=== PATIENT | female | born 1995 | race Caucasian/White ===

== ENCOUNTER 2017-06-07 14:13 | Emergency (ER) | payer MEDICAID ==
[~2017-06-07] VITALS: Ht 157.5 cm; Wt 76.8 kg
[~2017-06-07 14:13] MED LIST: AMOXICILLIN500 M2 PO; AMOXIL500 MG PO; BENADRYL 25MG C25 MG PO; BIRTH CONTROL; ETODOLAC400 MG PO; FLEXERIL10 MG PO; IMPLANON68 MG; KEFLEX 500MG.500 MG PO; MEDROL 4MG. DOSE4 MG PO; MOTRIN400 MG PO; NOMEDS; ROMYCIN5 MG/GM OP; VEE K PO; ZITHROMAX Z PA250 MG PO; ZOFRAN ODT4 MG PO; ZYRTEC ALLERGY10 MG PO
--- OUTSIDE RECORDS SUMMARY | 2017-06-07 14:22 | External Medical Summary Rpt | CCD ---
Author Author , [facility] Organization [facility] Address Unknown Phone Care Team Providers Care Career Information Specialist Name Role Phone BURCH BRO, BURCH Unavailable Unavailable BRO BURCH BRO, BURCH Unavailable Unavailable BRO ELSA HUNTER Unavailable Unavailable ELSA SPENCER, HUNTER Unavailable Unavailable SPENCER ELSA PALMER, HUNTER Unavailable Unavailable JIMI LANE, Unavailable Unavailable [facility], [facility]available [facility] Unavailable [place], [facility] Unavailable Unavailable [place], [facility] [place] JUDSON DUNCAN, Unavailable Unavailable JUDSON DUNCAN JUDSON DUNCAN, Unavailable Unavailable JUDSON DUNCAN RIANNA ROPER, Unavailable Unavailable SHALOM ROPERLAS JUNE SCHMITT MD, Unavailable Unavailable JUNE SCHMITT MD [facility], [facility] CORINA FERRARI, Unavailable Unavailable CORINA FERRARI GAINEY Unavailable Unavailable STEVEN WEN SAVAGE, Unavailable Unavailable WEN SAVAGE [facility] Unavailable Un[facility], [facility] Unavailable Unavailable [facility], [facility] Unavailable Unavailable INC, [facility] SUAREZ STERLING, SUAREZ STERLING Unavailable Unavailable SUAREZ STERLING, SUAREZ STERLING Unavailable Unavailable [facility], Unavailable Unavailable [facility] STOCK[place], [facility] Unavailable Unavailable [facility] Unavailable Unavailable SERVICES, [facility] MULBERRY URSZULA, Unavailable Unavailable MULBERRY URSZULA MALINDA SMITH T, Unavailable Unavailable MALINDA SMITH R HENRY, Unavailable Unavailable Gia SANTOS'AGUILARROBERTO CARLOS ESTRADA, O'AGUILAR Unavailable Unavailable [facility], Unavailable [facility]available [facility] Unavailable Unavailable [facility] Unavailable Unavailable LAB, [facility] RENUSCH, RENUSCH Unavailable Unavailable [id number], Unavailable Unavailable [id number] LULA POLANCO, SHERRI, Unavailable Unavailable LULA Jolly SOKAN, KARYN O, Unavailable Unavailable SOKAN, KARYN O STRAWZELL CRI, Unavailable Unavailable STRAWZELL CRI STRAWZELL CRI, Unavailable Unavailable STRAWZELL CRI UMA HORTON, Unavailable Unavailable UMA HORTON [facility] Unavailable Unavailable #[facility], [facility] # Unavailable Unavailable [id number], [facility] # [id number] [facility] HERRERA Unavailable Unavailable [facility] Unavailable Unavailable [facility], [facility] Purpose Continuity of Care Document - 11-28-2007 through 2016 Problems Code Diagnosis DOS Provider Status Z3040 ENCOUNTER 02-04-2017 [facility] FOR [facility]IANS SURVEILLANC GROUP E CONTRACEPTI VES UNS Z3009 ENCOUNTER 11-18-2016 [facility] OT GENERAL PHYSICIANS GROUP GEOTECHNICAL INTERN&ADV ICE CONTRACEPT J069 ACUTE UPPER 10-20-2016 [facility], RESPIRATORY PLLC INFECTION UNSPECIFIED R112 NAUSEA WITH 10-20-2016 [facility] VOMITING PHYS[facility]IANS, UNSPECIFIED PLLC N926 IRREGULAR 10-18-2016 [facility] UNSPECIFIED R1033 PERIUMBILIC 08-07-2016 [facility] AL PAIN PHYSICIANS, PLLC Z3046 ENCOUNTER 07-09-2016 [facility] SURVEILLANC PHYSICIANS E IMPL GROUP SUBDERMAL CONTRACEPT 6264 IRREGULAR 12-25-2014 [facility] MENSTRUAL PHYSICIANS CYCLE GROUP 18194 OTHER SIGN 11-23-2014 [place] [facility] 6116 GALACTORRHE 11-20-2014 [facility] A NOT PHYSICIANS ASSOCIATED GROUP WITH CHILDBIRTH 36412 OTHER 11-20-2014 [facility] ABNORMAL PHYSICIANS FINDING GROUP RADIOLOGICA L EXAM BREAST 15961 UNSPECIFIED 11-22-2013 ERICK K[place] [address] UNSPECIFIED 11-19-2013 [facility] CONJUNCTIVI INC TIS 72348 UNSPECIFIED 11-19-2013 MARCIN BRO CONJUNCTIVI TIS 48744 ORBITAL 11-19-2013 MARCIN SAHA CELLULITIS 87486 PAIN IN OR 11-19-2013 JUDSON AROUND EYE DUNCAN 6820 CELLULITIS 11-19-2013 [facility] AND ABSCESS [facility] OF FACE INC 7823 EDEMA 11-19-2013 JUDSON DUNCAN V2543 SURVEILLANC 07-26-2013 ELSA PALMER E PREV PRSC IMPL SUBDERMAL CONTRACEPT V692 PROBLEMS 07-26-2013 COM[facility] RELATED TO PHYSICIANS HIGH-RISK LA SEXUAL BEHAVIOR V255 INSERTION 07-06-2013 ELSA PALMER OF IMPLANTABLE SUBDERMAL CONTRACEPTI VE 350.2 350.2 11-29-2012 [facility] ATYPICAL [facility] PAIN [facility] 3502 ATYPICAL 11-29-2012 [facility] 9104 FCE 09-19-2012 [facility] NCK&SCLP NO EMERGENCY EYE INSECT SERVICES BITE NONVNOM W/O INF 7241 PAIN IN 09-19-2011 [facility] THORACIC [facility]Y SPINE SERVICES 7245 UNSPECIFIED 09-19-2011 JUDSON BACKACHE DUNCAN 5990 URINARY 08-04-2011 STR[facility]LL TRACT CRI INFECTION SITE NOT SPECIFIED 9194 OTH MX&UNS 05-10-2011 [facility] SITE INSECT EMERGENCY BITE SERVICES NONVENOMOUS W/O INF 462 ACUTE 01-16-2011 [facility] PHARYNGITIS [facility] 9134 ELB 12-15-2010 [facility] INSECT BITE NONVENOMOUS W/O INF 9164 HIP THI 12-15-2010 [facility] LEG&ANK [facility] INSECT BITE NONVENOMOUS W/O INF V7231 ROUTINE 07-03-2010 [facility] OF EXAMINATION [facility]ANCES V745 SCREENING 07-03-2010 PATHOLOGY & EXAMINATION CYTOLOGY FOR LAB VENEREAL DISEASE 1320 PEDICULUS 04-30-2010 [facility] CAPITIS [facility] 220 BENIGN 10-04-2009 [facility] NEOPLASM OF HEALTH OVARY [facility] 6202 OTHER AND 10-04-2009 PATHOLOGY & UNSPECIFIED CYTOLOGY OVARIAN LAB CYST 6259 UNSPEC 07-26-2009 [facility] CLINIC OF W/FEM[facility] [place] [facility] ORGANS 08160 ABDOMINAL 07-26-2009 [facility] PAIN, LEFT HEALTH LOWER CLINIC OF [facility] 35874 ABDOMINAL 07-16-2009 ANGELICA PAIN, EMERGENCY UNSPECIFIED SERVICES SITE ASSOC[facility]ATES 87640 ABDOMINAL 07-16-2009 [facility] PAIN, [facility] GENERALIZED INC 8730 OPEN WOUND 11-02-2008 [facility] SCALP EMERGENCY WITHOUT SERVICES MENTION ASSOCIATES COMPLICATIO N 9190 ABRASION/FR 11-02-2008 [facility] ICION BURN EMERGENCY OTH MX&UNS SERVICES SITE W/O ASSOCIATES INF 920 CONTUSION 11-02-2008 [facility] OF FACE [facility]ERGENCY SCALP AND SERVICES NECK EXCEPT ASSOCIATES EYE E8490 PLACE OF 11-02-2008 [place] OCCURRENCE, [facility]ICAL HOME [facility] E8859 FALL FROM 11-02-2008 [place] OTHER MEDICAL SLIPPING IMAGING TRIPPING OR ASSOCIATES STUMBLING E8888 OTHER FALL 11-02-2008 [facility] V202 ROUTINE 03-19-2008 [facility] OR [facility] CHILD HEALTH CHECK 7806 FEVER & OTH 02-04-2008 [facility] PROF SERV DISTURBANCE S [place] REG 13316 UNSPECIFIED 01-24-2008 [place] SITE OF MEDICAL ANKLE IMAGING SPRAIN AND ASSOCIATES STRAIN E9179 OTHER 01-24-2008 [place] STRIKING MEDICAL AGAINST IMAGING W/WO ASSOCIATES SUBSEQUENT FALL Allergies, Adverse Reactions, Alerts Type Allergy to substance Adverse Reaction to Substance Substance Reaction Severity NO KNOWN ALLERGIES Unknown Unknown Medications Na ND Rx Da Fi Fi Am Da Di Ph RX Ph St me C No te ll ll ou ys ag ar # ys at rm s nt no ma ic us Or Da si cy ia de te s n re d ME 59 06 07 1. [address] 76 -1 -1 00 00 IN ti OX 24 5- 4- 0 00 IC ve YP 53 20 20 42 RO 80 17 17 66 PH GE [address] MA ER CY ON E 15 0 MG /M L ME 59 03 04 1. [address] 76 -2 -2 00 00 IN ti OX 24 9- 1- 0 00 IC ve YP 53 20 20 42 RO 80 17 17 66 PH GE [address] MA ER CY ON E 15 0 MG /M L ME 00 04 04 0 21 6 WA 71 WALDRON Ac TH 60 -2 -2 .0 L- 16 MM ti YL 34 5- 5- 00 MA 52 ON ve MT 59 20 20 RT 3 D ED 31 11 11 KA NI 5 PH TH SO AR AR LO MA IN NE CY E 4 # Y MG 10 05 DO 91 SE PK PE 00 11 11 1 60 7 CL 22 CL Ac RM 47 -1 -1 .0 IN 66 AR ti ET 20 1- 1- 00 IC 03 KE ve HR 24 20 20 IN 26 10 10 PH DE 0 AR RE 5% MA K CY J CR EA LL M C MA 51 07 07 0 11 1 WA 70 NO Ac LA 67 -0 -0 8. L- 77 RF ti TH 25 8- 8- 00 MA 78 LE ve IO 27 20 20 0 RT 3 ET N 70 10 10 R 0. 4 PH 5% AR HE MA NR LO CY Y TI # ON 10 05 91 IB 68 02 02 00 30 5 WA 70 CL Ac UP 64 -1 -2 .0 L- 58 AR ti RO 50 2- 6- 00 MA 30 KE ve FE 22 20 20 RT 4 N 09 10 10 DE 40 0 PH RE 0 AR K MG MA J CY TA BL #5 ET 91 00 02 02 00 30 3 WA 44 CL Ac 40 -1 -2 .0 L- 83 AR ti 60 2- 6- 00 MA 45 KE ve 35 20 20 RT 0 70 10 10 DE 5 PH RE AR K MA J CY #5 91 00 11 12 00 21 7 RI 81 GA Ac 14 -2 -0 .0 TE 02 IN ti 39 4- 3- 00 53 EY ve 89 20 20 AI 80 09 09 D LA 1 PH CH AR AE M L #3 S 93 8 AC 00 11 12 00 8. 2 RI 81 GA Ac ET 09 -2 -0 00 TE 02 IN ti AM 30 4- 3- 0 52 EY ve IN 15 20 20 AI OP 01 09 09 D LA HE 0 PH CH N- AR AE CO M L D #3 S #3 93 8 TA BL ET AM 65 11 12 00 20 10 RI 80 SO Ac OX 86 -1 -0 .0 TE 94 KA ti IC 20 9- 3- 00 69 N ve IL 01 20 20 AI BA LI 70 09 09 D BA N 5 PH TU 50 AR ND 0 M E MG #3 O 93 CA 8 PS UL E 53 03 03 00 24 6 WA 70 FL Ac 74 -1 -2 .0 L- 12 AN ti 60 3- 6- 00 MA 21 AG ve 13 20 20 RT 9 AN 10 09 09 5 PH JA AR ME MA S CY P #5 91 OV 51 07 08 00 11 1 RI 74 No Ac ID 67 -2 -1 8. TE 30 t ti E 25 8- 4- 00 70 Av ve 0. 27 20 20 0 AI ai 5% 60 08 08 D la 4 PH bl LO AR e TI M ON #3 93 8 OV 51 03 04 00 59 2 RI 72 No Ac ID 67 -1 -1 .0 TE 51 t ti E 25 9- 7- 00 31 Av ve 0. 27 20 20 AI ai 5% 60 08 08 D la 4 PH bl LO AR e TI M ON #3 93 8 OV 51 03 04 00 59 1 RI 72 No Ac ID 67 -0 -0 .0 TE 28 t ti E 25 4 00 64 Av ve 0. 27 20 20 AI ai 5% 60 08 08 D la 4 PH bl LO AR e TI M ON #3 93 8 Immunization Name Date Rout CVX Reac Dose Comm Prov Is Faci e tion ent ider Refu lity Give sed n MPSV 07- 32 NORF No FAMI 4 8-20 LEET LY VACC 08 , R CARE INE HENR GROU Y ASSO PS CIAT ACYW ES -135 SUBQ USE TDAP 02-21 115 NORF No FAMI 8-20 LEET LY VACC 08 , R CARE INE HENR 7 Y ASSO YRS/ CIAT > IM ES Vital Signs 11-29-2012 17:25 Name Value Interpretat Reference Comment ion Range BP 64 mm[Hg] Diastolic BP Systolic 115 mm[Hg] Heart 69 /min Rate/Pulse O2% 98 % Respiratory 20 /min Rate 11-29-2012 16:12 Name Value Interpretat Reference Comment ion Range BP 61 mm[Hg] Diastolic BP Systolic 124 mm[Hg] Heart 61 /min Rate/Pulse O2% 98 % Respiratory 20 /min Rate Procedures Procedure DOS Code Location Performer Comment THERAPEUT 94884 [facility] ELSA IC 7 PHYSICIAN PROPHYLAC S GROUP TIC/DX INJECTION SUBQ/IM URINE 31279 [facility] ELSA 7 PHYSICIAN TEST S GROUP VISUAL COLOR CMPRSN METHS URINE 43144 [facility] TEST INC INC VISUAL COLOR CMPRSN METHS UNCLASSIF J3490 [facility] IED DRUGS 7 [facility] INC INC URNLS DIP 63285 [facility] STICK/TAB INC INC LET REAGENT AUTO MICROSCOP Y URINE 95799 [facility] TEST INC INC VISUAL COLOR CMPRSN METHS IAADIADOO 33298 [facility] INFLUENZA INC INC IAADIADOO 42728 [facility] STREPTOCO INC INC CCUS GROUP A CULTURE 36004 [facility] BACTERIAL 6 [facility] INC INC QUANTTATI VE COLONY COUNT URINE COMPREHEN 94196 [facility] SIVE 6 [facility] METABOLIC INC INC PANEL COLLECTIO 53756 [facility] ST[facility] N VENOUS 6 [facility] BLOOD INC INC VENIPUNCT URE URINE 63084 [facility] STONE 6 [facility] TEST INC INC VISUAL COLOR CMPRSN METHS GONADOTRO 66618 [facility] PIN 6 [facility] CHORIONIC INC INC QUALITATI VE URNLS DIP 10504 ST[facility] STONE 6 [facility] STICK/TAB INC INC LET REAGENT AUTO MICROSCOP Y BLOOD 72718 [facility] COUNT 6 [facility] COMPLETE INC INC AUTO&AUTO DIFRNTL WBC REMOVAL 72967 [facility] ELSA NON-BIODE 6 PHYSICIAN SPENCER GRADABLE S GROUP DRUG DELIVERY IMPLANT US BREAST 52139 [facility] R[facility] UNI REAL 5 [facility] TIME INC INC WITH IMAGE LIMITED 3D 45044 [facility] R[facility]TER RENDERING 4 [facility] INC INC W/INTERP& POSTPROC DIFF WORK STATION CT ORBIT 67679 [facility] SELLA/POS 4 [facility] T INC INC FOSSA/EAR W/[place] [address] JUDSON JUDSON MAXILLOFA 4 DUNCAN DUNCAN CIAL W/O CONTRAST MATERIAL URINE 31866 [facility] TEST INC INC VISUAL COLOR CMPRSN METHS CUL BACT 40614 COMBINED COMBINED XCPT 3 PHYSICIAN PHYSICIAN URINE S LA S LA BLOOD/STO OL AEROBIC ISOL ANTIBODY 02144 COMBINED COMBINED CHLAMYDIA 3 PHYSICIAN PHYSICIAN S LA S LA INSJ 62783 ELSA HUNTER NON-BIODE 3 SPENCER SPENCER GRADABLE DRUG DELIVERY IMPLANT URINE 39022 ELSA HUNTER 3 SPENCER SPENCER TEST VISUAL COLOR CMPRSN METHS ETONOGEST J7307 HUNTER HUNTER REL 3 SPENCER SPENCER CNTRACPT IMPL SYS INCL IMPL & SPL RADEX 84988 [facility] SPINE 2 [facility] THORACIC INC INC 3 VIEWS URNLS DIP 80544 [facility] 2 [facility] STICK/TAB INC INC LET REAGENT AUTO MICROSCOP Y RADIOLOGI 93649 [facility] C EXAM 2 [facility] CHEST 2 INC INC VIEWS FRONTAL&L ATERAL URINE 72479 [facility] 2 [facility] TEST INC INC VISUAL COLOR CMPRSN METHS URNLS DIP 36996 STRAWZELL STRAWZELL 1 CRI CRI STICK/TAB LET RGNT NON-AUTO W/O MICRSCP CULTURE 78343 COMBINED COMBINED BACTERIAL 1 PHYSICIAN PHYSICIAN S BRANDT S LA QUANTTATI VE COLONY COUNT URINE INSERTION 21313 [facility] 0 HEALTH SPENCER IMPLANTAB [facility]INIC OF [facility] CONTRACEP TIVE CAPSULES URINE 25284 [facility] 0 HEALTH SPENCER TEST CLINIC OF VISUAL FRANCES COLOR CMPRSN METHS ETONOGEST J7307 [facility] REL 0 HEALTH SPENCER CNTRACPT CLINIC OF IMPL SYS FRANCES INCL IMPL & SPL IADNA 07066 PATHOLOGY PATHOLOGY NEISSERIA 0 & & CYTOLOGY CYTOLOGY GONORRHOE LAB LAB AE AMPLIFIED PROBE TQ IADNA 21267 PATHOLOGY PATHOLOGY CHLAMYDIA 0 & & CYTOLOGY CYTOLOGY TRACHOMAT LAB LAB IS AMPLIFIED PROBE TQ CYTP C/V 63603 PATHOLOGY PATHOLOGY AUTO THIN 0 & & LYR CYTOLOGY CYTOLOGY PREPJ SCR [place] [address] PATHOLOGY PATHOLOGY SURG 0 & & PATHOLOGY CYTOLOGY CYTOLOGY LAB LAB GROSS&STEVEN ROSCOPIC EXAM ANESTHESI 46719 [facility], A 0 ANESTH UMA A INTRAPERI OF THE TONEAL [place] LOWER ABD W/LAPS NOS LAPAROSCO 70714 [facility] HUNTER, PY W/RMVL 0 HEALTH JIMI J ADNEXAL CLINIC OF STRUCTURE S [place] PLLC LAPS 51299 [facility] FULG/EXC 0 [facility] OVARY INC INC VISCERA/[place] [address] [facility] INFUSION 0 [facility] THERAPY/P INC INC ROPHYLAXI S /DX 1ST TO 1 HR THERAPEUT 71407 ST[facility] IC 0 [facility] INJECTION INC INC IV PUSH EACH NEW DRUG APPLICATI 9977 [facility] ON/ADMIN 0 [facility] ADHESION INC INC BARRIER SUBSTANCE S OTH 6525 [facility] LAPAROSCO 0 [facility] PIC LOCAL INC INC EXCISION/ DESTRUC OVARY BLOOD 29048 [facility] COUNT 0 [facility] COMPLETE INC INC AUTO&AUTO DIFRNTL WBC GONADOTRO 14375 [facility] PIN 0 [facility] CHORIONIC INC INC QUALITATI VE COMPREHEN 01698 [facility] R[facility] SIVE 0 [facility] METABOLIC INC INC PANEL 3D 90986 STONE STONE RENDERING 9 [facility] INC INC W/INTERP& POSTPROC DIFF WORK STATION BASIC 76974 [facility] METABOLIC 9 [facility] PANEL INC INC CALCIUM TOTAL CULTURE 38102 [facility] BACTERIAL 9 [facility] INC INC QUANTTATI VE COLONY COUNT URINE URNLS DIP 08212 STONERANI RITTER 9 [facility] STICK/TAB INC [place] [address] [facility] ABDOMEN 9 [facility] W/O INC INC CONTRAST MATERIAL BLOOD 35894 [facility] COUNT 9 [facility] COMPLETE INC INC AUTO&AUTO DIFRNTL WBC CT PELVIS 42174 KULWANT ROPER, W/O 9 MEDICAL RIANNA CONTRAST IMAGING MATERIAL ASSOCIATE S URINE 29150 ST[facility] IRTTER 9 [facility] TEST INC [place] [address] [facility] R[facility]TER STREPTOCO 9 [facility] CCUS INC INC GROUP A SIMPLE 96659 ANGELICA FERRARI, REPAIR 9 EMERGENCY [place] P SCALP/NEC SERVICES K/AX/BIRDIE T/TRUNK ASSOCIATE 2.5CM/< [place] [address] [place] JUDSON, HEAD/BRAI 9 MEDICAL RIANNA N W/O IMAGING CONTRAST ASSOCIATE MATERIAL S 3D 67981 KULWANT DUNCANUTCHER, RENDERING 9 MEDICAL RIANNA W/INTERP IMAGING & ASSOCIATE POSTPROCE S SS [place]PERVISI ON 3D 53118 ST[facility]ONE RENDERING 9 [facility] INC INC W/INTERP& POSTPROC DIFF WORK STATION CLOSURE 8659 [facility] SKIN&SUBC 9 [facility] [place]ANE[place] [address] KULWANT JUDSON, MAXILLOFA 9 MEDICAL RIANNA CIAL W/O IMAGING CONTRAST ASSOCIATE MATERIAL S TDAP 74008 FAMILY TOM, VACCINE 7 8 CARE R LEI YRS/> IM ASSOCIATE S MPSV4 81871 FAMILY TOM, VACCINE 8 CARE R LEI GROUPS ASSOCIATE ACYW-135 [place] [address] [facility] R[facility] STREPTOCO 8 [facility] CCUS INC INC GROUP A RADEX 32809 KULWANT DUNCANUTCHER, ANKLE 8 MEDICAL RIANNA COMPLETE IMAGING MINIMUM 3 ASSOCIATE VIEWS S RADIOLOGI 04177 [facility] C 8 [facility] EXAMINATI INC INC ON ANKLE 2 VIEWS Encounters Encounter Start End Date Code Location Performer Type Date OFFICE 03325 [facility] ELSA [place] 7 7 PHYSICIAN T VISIT 5 S GROUP MINUTES OFFICE 97961 [facility] ELSA [place] 7 7 PHYSICIAN T VISIT S GROUP 15 MINUTES EMERGENCY 93362 LJ STOCKTON 7 7 PHYSICIAN [facility]MEN S, [facility] HIGH/URGE NT SEVERITY EMERGENCY 27969 [facility] 7 7 [facility] DEPARTMEN INC T VISIT LOW/MODER SEVERITY HOSPITAL [facility] - 7 7 [facility] OUTPATIEN INC T OFFICE 98684 STONE [place] 7 7 [facility] T VISIT 5 INC MINUTES HOSPITAL STONE - 7 7 [facility] OUTPATIEN INC T EMERGENCY 82450 [facility] 6 6 [facility] DEPARTMEN INC T VISIT LOW/MODER SEVERITY HOSPITAL STONE - 6 6 [facility] OUTPATIEN INC T EMERGENCY 02463 LJ KEITHISAIAH 6 6 PHYSICIAN DEPARTMEN S, [facility] T VISIT HIGH/URGE NT SEVERITY OFFICE 75242 [facility] HUNTER OUTPATIEN 5 5 PHYSICIAN SPENCER T VISIT S GROUP 15 MINUTES HOSPITAL ST[facility] - 5 5 [facility] OUTPATIEN INC T OFFICE 48674 [facility] HUNTER OUTPATIEN 5 5 PHYSICIAN SPENCER T VISIT S GROUP 15 MINUTES OFFICE 90869 SUAREZ STERLING SUAREZ STERLING OUTPATIEN 4 4 T VISIT 10 MINUTES OFFICE 43765 SUAREZ STERLING SUAREZ STERLING OUTPATIEN 4 4 T VISIT 10 MINUTES OFFICE 55920 SUAREZ STERLING SUAREZ STERLING OUTPATIEN 4 4 T VISIT 10 MINUTES EMERGENCY 74779 MARCIN BURCH 4 4 [facility] DEPARTMEN T VISIT HIGH/URGE NT SEVERITY EMERGENCY 30643 [facility] 4 4 [facility] DEPARTMEN INC T VISIT MODERATE SEVERITY OFFICE 50258 SUAREZ STERLING SUAREZ STERLING OUTPATIEN 4 4 T NEW 20 MINUTES HOSPITAL STONE - 4 4 [facility] OUTPATIEN INC T EMERGENCY 86799 KEY HERNANDEZ 4 4 DEPARTMEN T VISIT MODERATE SEVERITY EMERGENCY 46495 [facility] 4 4 [facility] DEPARTMEN INC T VISIT LOW/MODER SEVERITY HOSPITAL [facility] - 4 4 [facility] OUTPATIEN INC T OFFICE 94165 ELSA HUNTER OUTPATIEN 3 3 SPENCER SPENCER T VISIT 15 MINUTES Emergency JANY SCHMITT MD (ER) 3 15:15 3 17:31 [facility] EMERGENCY 49192 STONE 3 3 [facility] DEPARTMEN INC T VISIT LOW/MODER SEVERITY EMERGENCY 47272 ANGELICA SCHMITT 3 3 EMERGENCY [facility] DEPARTMEN SERVICES T VISIT MODERATE SEVERITY HOSPITAL STONE - 3 3 [facility] OUTPATIEN INC T EMERGENCY 00023 ST[facility] 3 3 [facility] DEPARTMEN INC T VISIT LOW/MODER SEVERITY HOSPITAL STONE - 3 3 [facility] OUTPATIEN INC T EMERGENCY 89880 ANGELICA HERNANDEZ 3 3 EMERGENCY DEPARTMEN SERVICES T VISIT MODERATE SEVERITY EMERGENCY 79840 [facility] 2 2 [facility] DEPARTMEN INC T VISIT LOW/MODER SEVERITY EMERGENCY 09472 ANGELICA SAVAGE 2 2 EMERGENCY [facility] DEPARTMEN SERVICES T VISIT HIGH/URGE NT SEVERITY HOSPITAL STONE - 2 2 [facility] OUTPATIEN INC T OFFICE 01825 STRAWZELL STRAWZELL OUTPATIEN 1 1 CRI CRI T VISIT 15 MINUTES EMERGENCY 09533 ANGELICA SAVAGE 1 1 EMERGENCY [facility] DEPARTMEN SERVICES T VISIT MODERATE SEVERITY EMERGENCY 27448 [facility] 1 1 [facility] DEPARTMEN INC T VISIT LOW/MODER SEVERITY HOSPITAL [facility] - 1 1 [facility] OUTPATIEN INC T OFFICE 83182 STONE RITTER OUTPATIEN 1 1 [facility] VISIT [facility] 15 MINUTES OFFICE 80906 FAMILY MULBERRY OUTPATIEN 1 1 CARE URSZULA T VISIT ASSOCIATE 15 S MINUTES PERIODIC 45970 [facility] PREVENTIV 0 0 HEALTH SPNECER E MED EST CLINIC OF PATIENT FRANCES 12-17YRS OFFICE 66320 STONE RITTER OUTPATIEN 0 0 [facility] MIDDLE T [facility] MINUTES HOSPITAL STONE - 0 0 [facility] OUTPATIEN INC T HOSPITAL STONE - 0 0 [facility] OUTPATIEN INC T OFFICE 02094 [facility] ELVI HUNTERPATIEN 0 0 HEALTH JIMI Jolly VISIT [facility] OFF[facility] 57324 W[facility]S ELSA OUTPATIEN 9 9 HEALTH JIMI Manzanares T NEW 30 CLINIC OF MINUTES [facility] EMERGENCY 67430 ST[facility] 9 9 [facility] DEPARTMEN INC T VISIT HIGH/URGE NT SEVERITY HOSPITAL [facility] - 9 9 [facility] OUTPATIEN INC T EMERGENCY 49855 ANGELICA SAVAGE, DEPT 9 9 EMERGENCY WEN S VISIT SERVICES HIGH SEVERITY& ASSOCIATE THREAT S [facility] EMERGENCY 22690 STONE 9 9 [facility] DEPARTMEN INC T VISIT LIMITED/M INOR PROB HOSPITAL STONE - 9 9 [facility] OUTPATIEN INC T EMERGENCY [id number] ANGELICA LIZ, 9 9 EMERGENCY [facility] DEPARTMEN SERVICES O T VISIT MODERATE ASSOCIATE SEVERITY S EMERGENCY 59747 ANGELICA FERRARI DEPT 9 9 EMERGENCY [facility] VISIT SERVICES HIGH SEVERITY& ASSOCIATE THREAT S [facility] EMERGENCY 62705 STONE 9 9 [facility] DEPARTMEN INC T VISIT MODERATE SEVERITY HOSPITAL STONE - 9 9 [facility] OUTPATIEN INC T PERIODIC [id number] FAMILY TOM, PREVENTIV 8 8 CARE Gia ODOM MARIO EST ASSOCIATE PATIENT S [id number] OFFICE [id number] SARAH OUTPATIEN 8 8 CARE MALINDA T T VISIT ASSOCIATE 15 S MINUTES HOSPITAL STONE - 8 8 [facility] INC T EMERGENCY 22143 STONE 8 8 [facility] DEPARTMEN INC T VISIT MODERATE SEVERITY EMERGENCY 52248 STONE POLANCO, 8 8 [facility] T VISIT PROF CHARLA LOW/MODER SEVERITY HOSPITAL STONE - 8 8 [facility] OUTPATIEN [facility] T EMERGENCY 97317 STONE 8 8 [facility] T VISIT MODERATE SEVERITY
--- OUTSIDE RECORDS SUMMARY | 2017-06-07 14:22 | External Medical Summary Rpt | CCD ---
Author Author , [facility] Organization [facility] Address Unknown Phone Care Team Providers Care Flue Gas Analyst Name Role Phone BURCH BRO, BURCH Unavailable [...] STEVEN WEN SAVAGE, Unavailable Unavailable WEN SAVAGE [facility] Unavailable Unavailable [facility], [facility] Unavailable Unavailable [facility], [facility] Unavailable Unavailable INC, [facility] SUAREZ STERLING, SUAREZ STERLING Unavailable Unavailable SUAREZ STERLING, SUAREZ STERLING Unavailable Unavailable [facility], Unavailable Unavailable [facility] [place], [place] Unavailable Unavailable [facility] Unavailable Unavailable SERVICES, [facility] MULBERRY URSZULA, Unavailable Unavailable MULBERRY [...] PHARMACY #[id number] # Unavailable Unavailable [id number], [facility] # [id number] KEY HERRERA Unavailable Unavailable [facility] Unavailable Unavailable OF [facility], [facility] Purpose Continuity of Care Document - 11-28-2007 through 2016 Problems Code Diagnosis DOS Provider Status Z3040 ENCOUNTER 02-04-2017 [facility] SURVEILLANC GROUP E CONTRACEPTI VES UNS Z3009 ENCOUNTER 11-18-2016 [facility] OT GENERAL PHYSICIANS GROUP ORTHOPHOTOGRAPHY TECHNICIAN&ADV ICE CONTRACEPT J069 ACUTE UPPER 10-20-2016 [facility], RESPIRATORY PLLC INFECTION UNSPECIFIED R112 NAUSEA WITH 10-20-2016 [facility] VOMITING PHYSICIANS, UNSPECIFIED PLLC N926 IRREGULAR 10-18-2016 [facility] UNSPECIFIED R1033 PERIUMBILIC 08-07-2016 [facility] AL PAIN PHYSICIANS, PLLC Z3046 ENCOUNTER 07-09-2016 [facility] SURVEILLANC PHYSICIANS E IMPL GROUP SUBDERMAL CONTRACEPT 6264 IRREGULAR 12-25-2014 [facility] MENSTRUAL PHYSICIANS CYCLE GROUP 76442 OTHER SIGN 11-23-2014 [place] [facility] BREAST [facility] ASS 6116 GALACTORRHE 11-20-2014 [facility] A NOT PHYSICIANS ASSOCIATED GROUP WITH [place] 61217 OTHER 11-20-2014 [facility] ABNORMAL PHYSICIANS FINDING GROUP RADIOLOGICA L EXAM BREAST 61041 UNSPECIFIED 11-22-2013 ERICK K[place] [address] UNSPECIFIED 11-19-2013 [facility] CONJUNCTIVI INC TIS 51076 UNSPECIFIED 11-19-2013 MARCIN BRO CONJUNCTIVI TIS 42471 ORBITAL 11-19-2013 MARCIN SAHA CELLULITIS 67590 PAIN IN OR 11-19-2013 JU[facility]ON AROUND EYE DUNCAN 6820 CELLULITIS 11-19-2013 [facility] AND ABSCESS [facility] OF FACE INC 7823 EDEMA 11-19-2013 JUDSON DUNCAN V2543 SURVEILLANC 07-26-2013 ELSA PALMER E PREV PRSC IMPL SUBDERMAL CONTRACEPT V692 PROBLEMS 07-26-2013 COMBINED RELATED TO PHYSICIANS HIGH-RISK LA SEXUAL BEHAVIOR V255 INSERTION 07-06-2013 ELSA PALMER OF IMPLANTABLE SUBDERMAL CONTRACEPTI VE 350.2 350.2 11-29-2012 Stone ATYPICAL [facility] PAIN [facility] 3502 ATYPICAL 11-29-2012 [facility] 9104 FCE 09-19-2012 [facility] NCK&SCLP NO EMERGENCY EYE INSECT SERVICES BITE NONVNOM W/O INF 7241 PAIN IN 09-19-2011 [facility] THORACIC [facility] SPINE SERVICES 7245 UNSPECIFIED 09-19-2011 JUDSON BACKACHE DUNCAN 5990 URINARY 08-04-2011 STR[facility] TRACT CRI INFECTION SITE NOT SPECIFIED 9194 OTH MX&UNS 05-10-2011 [facility] SITE INSECT EMERGENCY BITE SERVICES NONVENOMOUS W/O INF 462 ACUTE 01-16-2011 [facility] CO PHARYNGITIS [facility] 9134 ELB 12-15-2010 [facility] INSECT BITE NONVENOMOUS W/O INF 9164 HIP THI 12-15-2010 [facility] LEG[facility]ANK [facility] INSECT BITE NONVENOMOUS W/O INF V7231 ROUTINE 07-03-2010 [facility] EXAMINATION [place] V745 SCREENING 07-03-2010 PATHOLOGY & EXAMINATION CYTOLOGY FOR LAB VENEREAL DISEASE 1320 PEDICULUS 04-30-2010 [facility] CAPITIS [facility] 220 BENIGN 10-04-2009 [facility]M [facility] 6202 OTHER AND 10-04-2009 PATHOLOGY & UNSPECIFIED CYTOLOGY OVARIAN LAB CYST 6259 UNSPEC 07-26-2009 [facility] OF W/FEMALE [facility] ORGANS 84670 ABDOMINAL 07-26-2009 [facility] PAIN, LEFT HE[facility] LOWER [facility] 39056 ABDOMINAL 07-16-2009 ANGELICA PAIN, EMERGENCY UNSPECIFIED SERVICES SITE ASSOC[facility]ATES 66057 ABDOMINAL 07-16-2009 [facility] PAIN, [facility] GENERALIZED INC 8730 OPEN WOUND 11-02-2008 [facility] SCALP EMERGENCY WITHOUT SERVICES MENTION ASSOCIATES COMPLICATIO N 9190 ABRASION/FR 11-02-2008 [facility] ICION BURN EMERGENCY OTH MX&UNS SERVICES SITE W/O ASSOCIATES INF 920 CONTUSION 11-02-2008 [facility] OF FACE EMERGENCY SCALP AND SERVICES NECK EXCEPT ASSOCIATES EYE E8490 PLACE OF 11-02-2008 [place] O[facility]ENCE[facility] HOME [facility]AGING ASSOCIATES E8859 FALL FROM 11-02-2008 [place] OTHER MEDICAL SLIPPING IMAGING TRIPPING OR ASSOCIATES STUMBLING E8888 OTHER FALL 11-02-2008 [facility] V202 ROUTINE 03-19-2008 [facility] CHILD HEALTH CHECK 7806 FEVER & OTH 02-04-2008 [facility] PROF SERV DISTURBANCE S TEMP REG 06802 UNSPECIFIED 01-24-2008 [place] SITE OF MEDICAL ANKLE IMAGING SPRAIN AND ASSOCIATES STRAIN E9179 OTHER 01-24-2008 [place] STRIKING MEDICAL AGAINST IMAGING W/WO ASSOCIATES SUBSEQUENT [...] 5- 5- 00 MA 52 ON ve TX 59 20 20 RT 3 D ED [...] 20 20 AI 80 09 09 D NE 1 PH CH AR AE M L #3 S 93 8 AC 00 11 12 00 8. 2 RI 81 GA Ac ET 09 -2 -0 00 TE 02 IN ti AM 30 4- 3- 0 52 EY ve IN 15 20 20 AI OP 01 09 09 D NE HE 0 PH CH N- AR AE [...] Procedure DOS Code Location Performer Comment THERAPEUT 99836 [facility] ELSA IC 7 PHYSICIAN PROPHYLAC S GROUP TIC/DX INJECTION SUBQ/IM URINE 83808 [facility] ELSA 7 PHYSICIAN TEST S GROUP VISUAL COLOR CMPRSN METHS URINE 59123 [facility] 7 [facility] TEST INC INC VISUAL COLOR CMPRSN METHS UNCLASSIF J3490 [facility] IED DRUGS 7 [facility] INC INC URNLS DIP 42133 [facility] STICK/TAB INC INC LET REAGENT AUTO MICROSCOP Y URINE 35823 [facility] TEST INC INC VISUAL COLOR CMPRSN METHS IAADIADOO 50110 [facility] 7 [facility] INFLUENZA INC INC IAADIADOO 11741 [facility] 7 [facility] STREPTOCO INC INC CCUS GROUP A CULTURE 72217 [facility] BACTERIAL 6 [facility] INC INC QUANTTATI VE COLONY COUNT URINE COMPREHEN 28321 [facility] SIVE 6 [facility] METABOLIC INC INC PANEL COLLECTIO 58058 [facility] STONE N VENOUS 6 [facility] BLOOD INC INC VENIPUNCT URE URINE 05484 [facility] STONE 6 [facility] TEST INC INC VISUAL COLOR CMPRSN METHS GONADOTRO 62526 [facility] PIN 6 [facility] CHORIONIC INC INC QUALITATI VE URNLS DIP 16237 ST[facility] STONE 6 [facility] STICK/TAB INC INC LET REAGENT AUTO MICROSCOP Y BLOOD 34981 [facility] R[facility]TER COUNT 6 [facility] COMPLETE INC INC AUTO&AUTO DIFRNTL WBC REMOVAL 67098 [facility] ELSA NON-BIODE 6 PHYSICIAN SPENCER GRADABLE S GROUP DRUG DELIVERY IMPLANT US BREAST 08673 [facility] RITTER UNI REAL 5 [facility] TIME INC INC WITH IMAGE LIMITED 3D 03111 [facility] RENDERING 4 [facility] INC INC W/INTERP& POSTPROC DIFF WORK STATION CT ORBIT 70058 [facility] R[facility]TER SELLA/POS 4 [facility] T INC INC FOSSA/EAR W/[place] [address] JUDSON JUDSON MAXILLOFA 4 DUNCAN DUNCAN CIAL W/O CONTRAST MATERIAL URINE 46885 [facility] 4 [facility] TEST INC INC VISUAL COLOR CMPRSN METHS CUL BACT 57284 COMBINED COMBINED XCPT 3 PHYSICIAN PHYSICIAN URINE S LA S LA BLOOD/STO OL AEROBIC ISOL ANTIBODY 57415 COMBINED COMBINED CHLAMYDIA 3 PHYSICIAN PHYSICIAN S LA S LA INSJ 04124 ELSA HUNTER NON-BIODE 3 SPENCER SPENCER GRADABLE DRUG DELIVERY IMPLANT URINE 95000 ELSA HUNTER 3 SPENCER SPENCER TEST VISUAL COLOR CMPRSN METHS ETONOGEST J7307 HUNTER HUNTER REL 3 SPENCER SPENCER CNTRACPT IMPL SYS INCL IMPL & SPL RADEX 38904 [facility] SPINE 2 [facility] THORACIC INC INC 3 VIEWS URNLS DIP 04628 [facility] RITTRE 2 [facility] STICK/TAB INC INC LET REAGENT AUTO MICROSCOP Y RADIOLOGI 22077 [facility] R[facility]TER C EXAM 2 [facility] CHEST 2 INC INC VIEWS FRONTAL&L ATERAL URINE 81013 [facility] 2 [facility] TEST INC INC VISUAL COLOR CMPRSN METHS URNLS DIP 25836 STR[facility] STRAWZELL 1 CRI CRI STICK/TAB LET RGNT NON-AUTO W/O MICRSCP CULTURE 57743 COMBINED COMBINED BACTERIAL 1 PHYSICIAN PHYSICIAN S BRANDT S LA QUANTTATI VE COLONY COUNT URINE INSERTION 20213 [facility] 0 HEALTH SPENCER IMPLANTAB CLINIC OF LE FRANCES CONTRACEP TIVE CAPSULES URINE 88930 [facility] 0 HEALTH SPENCER TEST CLINIC OF VISUAL FRANCES COLOR CMPRSN METHS ETONOGEST J7307 [facility] REL 0 HEALTH SPENCER CNTRACPT CLINIC OF IMPL SYS FRANCES INCL IMPL & SPL IADNA 40793 PATHOLOGY PATHOLOGY NEISSERIA 0 & & CYTOLOGY CYTOLOGY GONORRHOE LAB LAB AE AMPLIFIED PROBE TQ IADNA 82068 PATHOLOGY PATHOLOGY CHLAMYDIA 0 & & CYTOLOGY CYTOLOGY TRACHOMAT LAB LAB IS AMPLIFIED PROBE TQ CYTP C/V 57428 PATHOLOGY PATHOLOGY AUTO THIN 0 & & LYR CYTOLOGY CYTOLOGY PREPJ SCR [place] [address] PATHOLOGY PATHOLOGY SURG 0 & & PATHOLOGY CYTOLOGY CYTOLOGY LAB LAB GROSS&STEVEN ROSCOPIC EXAM ANESTHESI 06686 [facility] [place], A 0 ANESTH UMA A INTRAPERI OF THE TONEAL [place] LOWER ABD W/LAPS NOS LAPAROSCO 79836 [facility], PY W/RMVL 0 HEALTH JIMI J ADNEXAL CLINIC OF STRUCTURE S [place] PLLC LAPS 91953 [facility] FULG/EXC 0 [facility] OVARY INC INC VISCERA/[place] [address] [facility]TER INFUSION 0 [facility] THERAPY/P INC INC ROPHYLAXI S /DX 1ST TO 1 HR THERAPEUT 87604 [facility] IC 0 [facility] INJECTION INC INC IV PUSH EACH NEW DRUG APPLICATI 9977 [facility] R[facility] ON/ADMIN 0 [facility] ADHESION INC INC BARRIER SUBSTANCE S OTH 6525 [facility] R[facility] LAPAROSCO 0 [facility] PIC LOCAL INC INC EXCISION/ DESTRUC OVARY BLOOD 93845 [facility] COUNT 0 [facility] COMPLETE INC INC AUTO&AUTO DIFRNTL WBC GONADOTRO 82346 [facility] PIN 0 [facility] CHORIONIC INC INC QUALITATI VE COMPREHEN 00120 [facility] SIVE 0 [facility] METABOLIC INC INC PANEL 3D 34970 STONE STONE RENDERING 9 [facility] INC INC W/INTERP& POSTPROC DIFF WORK STATION BASIC 97872 [facility] METABOLIC 9 [facility] PANEL INC INC CALCIUM TOTAL CULTURE 20885 [facility] BACTERIAL 9 [facility] INC INC QUANTTATI VE COLONY COUNT URINE URNLS DIP 66905 STONERANI RITTER 9 [facility] STICK/TAB INC [place] [address] [facility] ABDOMEN 9 [facility] W/O INC INC CONTRAST MATERIAL BLOOD 56652 [facility] COUNT 9 [facility] COMPLETE INC INC AUTO&AUTO DIFRNTL WBC CT PELVIS 25018 KULWANT ROPER, W/O 9 MEDICAL RIANNA CONTRAST IMAGING MATERIAL ASSOCIATE S URINE 25307 [facility] 9 [facility] TEST INC [place] [address] ST[facility] R[facility]TER STREPTOCO 9 [facility] CCUS INC INC GROUP A SIMPLE 37318 ANGELICA FERRARI, REPAIR 9 EMERGENCY [place] P SCALP/NEC SERVICES K/AX/BIRDIE T/TRUNK ASSOCIATE 2.5CM/< [place] [address] [place] JUDSON, HEAD/BRAI 9 MEDICAL RIANNA N W/O IMAGING CONTRAST ASSOCIATE MATERIAL S 3D 29391 KULWANT DUNCANUTCHER, RENDERING 9 MEDICAL RIANNA W/INTERP IMAGING & ASSOCIATE POSTPROCE S SS SUPERVISI ON 3D 55462 STONE STONE RENDERING 9 [facility] INC INC W/INTERP& POSTPROC DIFF WORK STATION CLOSURE 8659 [facility] SKIN&SUBC 9 [facility] [place] [address] KULWANT JUDSON, MAXILLOFA 9 MEDICAL RIANNA CIAL W/O IMAGING CONTRAST ASSOCIATE MATERIAL S TDAP 31121 FAMILY TOM, VACCINE 7 8 CARE R LEI YRS/> IM ASSOCIATE S MPSV4 32676 FAMILY TOM, VACCINE 8 CARE R LEI GROUPS ASSOCIATE ACYW-[address] [place] [address] [facility] R[facility] STREPTOCO 8 [facility] CCUS INC INC GROUP A RADEX 30442 KULWANT DUNCANUTCHER, ANKLE 8 MEDICAL RIANNA COMPLETE IMAGING MINIMUM 3 ASSOCIATE VIEWS S RADIOLOGI 59114 [facility] C 8 [facility] EXAMINATI INC INC ON ANKLE 2 VIEWS Encounters Encounter Start End Date Code Location Performer Type Date OFFICE 34567 [facility] ELSA CAMARGO 7 7 PHYSICIAN T VISIT 5 S GROUP MINUTES OFFICE 49277 [facility] ELSA CAMARGO 7 7 PHYSICIAN T VISIT S GROUP 15 MINUTES EMERGENCY 24591 LJ [place] 7 7 PHYSICIAN [facility]MEN [facility] HIGH/URGE NT SEVERITY EMERGENCY 66926 [facility] 7 7 [facility] DEPARTMEN INC T VISIT LOW/MODER SEVERITY HOSPITAL [facility] - 7 7 [facility] OUTPATIEN INC T OFFICE 48390 [facility] CAMARGO 7 7 [facility] T VISIT 5 INC MINUTES HOSPITAL [facility] - 7 7 [facility] OUTPATIEN INC T EMERGENCY 04552 [facility] 6 6 [facility] DEPARTMEN INC T VISIT LOW/MODER SEVERITY HOSPITAL [facility] - 6 6 [facility] OUTPATIEN INC T EMERGENCY 78984 LJ KEITHISAIAH 6 6 PHYSICIAN DEPARTMEN S, [facility] T VISIT HIGH/URGE NT SEVERITY OFFICE 80341 [facility] HUNTER OUTPATIEN 5 5 PHYSICIAN SPENCER T VISIT S GROUP 15 MINUTES HOSPITAL [facility] - 5 5 [facility] OUTPATIEN INC T OFFICE 61597 [facility] HUNTER OUTPATIEN 5 5 PHYSICIAN SPENCER T VISIT S GROUP 15 MINUTES OFFICE 98943 SUARE[facility] STERLING SUAREZ STERLING OUTPATIEN 4 4 T VISIT 10 MINUTES OFFICE 78104 SUAREZ STERLING SUAREZ STERLING OUTPATIEN 4 4 T VISIT 10 MINUTES OFFICE 48229 SUAREZ STERLING SUAREZ STERLING OUTPATIEN 4 4 T VISIT 10 MINUTES EMERGENCY 40659 MARCIN BURCH 4 4 [facility] DEPARTMEN T VISIT HIGH/URGE NT SEVERITY EMERGENCY 97040 [facility] 4 4 [facility] DEPARTMEN INC T VISIT MODERATE SEVERITY OFFICE 40492 SUAREZ STERLING SUAREZ STERLING OUTPATIEN 4 4 T NEW 20 MINUTES HOSPITAL [facility] - 4 4 [facility] OUTPATIEN INC T EMERGENCY 69535 [facility] HERNANDEZ 4 4 DEPARTMEN T VISIT MODERATE SEVERITY EMERGENCY 06317 [facility] 4 4 [facility] DEPARTMEN INC T VISIT LOW/MODER SEVERITY HOSPITAL [facility] - 4 4 [facility] OUTPATIEN INC T OFFICE 80305 ELSA HUNTER OUTPATIEN 3 3 SPENCER SPENCER T VISIT 15 MINUTES Emergency JANY SCHMITT MD (ER) 3 15:15 3 17:31 [facility] EMERGENCY 70455 [facility] 3 3 [facility] DEPARTMEN INC T VISIT LOW/MODER SEVERITY EMERGENCY 29115 ANGELICA SCHMITT 3 3 EMERGENCY [facility] DEPARTMEN SERVICES T VISIT MODERATE SEVERITY HOSPITAL [facility] - 3 3 [facility] OUTPATIEN INC T EMERGENCY 27503 [facility] 3 3 [facility] DEPARTMEN INC T VISIT LOW/MODER SEVERITY HOSPITAL [facility] - 3 3 [facility] OUTPATIEN INC T EMERGENCY 97465 ANGELICA HERNANDEZ 3 3 EMERGENCY DEPARTMEN SERVICES T VISIT MODERATE SEVERITY EMERGENCY 44109 [facility] 2 2 [facility] DEPARTMEN INC T VISIT LOW/MODER SEVERITY EMERGENCY 16580 ANGELICA SAVAGE 2 2 EMERGENCY [facility] DEPARTMEN SERVICES T VISIT HIGH/URGE NT SEVERITY HOSPITAL [facility] - 2 2 [facility] OUTPATIEN INC T OFFICE 78417 STRAWZELL STRAWZELL OUTPATIEN 1 1 CRI CRI T VISIT 15 MINUTES EMERGENCY 39626 ANGELICA SAVAGE 1 1 EMERGENCY [facility] DEPARTMEN SERVICES T VISIT MODERATE SEVERITY EMERGENCY 71964 [facility] 1 1 [facility] DEPARTMEN INC T VISIT LOW/MODER SEVERITY HOSPITAL [facility] - 1 1 [facility] OUTPATIEN INC T OFFICE 95057 [facility] RITTER OUTPATIEN 1 1 [facility]IS[facility] 15 MINUTES OFFICE 58912 FAMILY MULBERRY OUTPATIEN 1 1 CARE URSZULA T VISIT ASSOCIATE 15 S MINUTES PERIODIC 49294 [facility] PREVENTIV 0 0 HEALTH SPENCER E MED EST CLINIC OF PATIENT FRANCES 12-17YRS OFFICE 34752 STONE RITTER OUTPATIEN 0 0 [facility] MIDDLE T NEW 10 [facility] MINUTES HOSPITAL STONE - 0 0 [facility] OUTPATIEN INC T HOSPITAL STONE - 0 0 [facility] OUTPATIEN INC T OFFICE 53190 [facility] ELVI HUNTERPATIEN 0 0 HEALTH JIMI Jolly [facility]ISIT [facility] 76356 W[facility] ELSA OUTPATIEN 9 9 HEALTH JIMI Manzanares T NEW 30 CLINIC OF MINUTES [facility] 33995 [facility] 9 9 [facility] DEPARTMEN INC T VISIT HIGH/URGE NT SEVERITY HOSPITAL [facility] - 9 9 [facility] OUTPATIEN INC T EMERGENCY 57933 ANGELICA SAVAGE, DEPT 9 9 EMERGENCY WEN S VISIT SERVICES HIGH SEVERITY& ASSOCIATE THREAT S [facility] EMERGENCY 59751 [facility] 9 9 [facility] DEPARTMEN INC T VISIT LIMITED/M INOR PROB HOSPITAL [facility] - 9 9 [facility] OUTPATIEN INC T EMERGENCY 74999 ANGELICA LIZ, 9 9 EMERGENCY [facility] DEPARTMEN SERVICES O T VISIT MODERATE ASSOCIATE SEVERITY S EMERGENCY 59923 ANGELICA FERRARI DEPT 9 9 EMERGENCY [facility] VISIT SERVICES HIGH SEVERITY& ASSOCIATE THREAT S [facility] EMERGENCY 19965 STONE 9 9 [facility] DEPARTMEN INC T VISIT MODERATE SEVERITY HOSPITAL [facility] - 9 9 [facility] OUTPATIEN INC T PERIODIC 06997 FAMILY TOM, PREVENTIV 8 8 CARE Gia ODOM MARIO EST ASSOCIATE PATIENT S 5-11YRS OFFICE 27998 SARAH OUTPATIEN 8 8 CARE MALINDA T T VISIT ASSOCIATE 15 S MINUTES HOSPITAL [facility] - 8 8 [facility] OUTPATIEN INC T EMERGENCY 08228 [facility] 8 8 [facility] DEPARTMEN INC T VISIT MODERATE SEVERITY EMERGENCY 48657 [facility] POLANCO, 8 8 [facility] T VISIT PROF CHARLA LOW/MODER SEVERITY HOSPITAL [facility] - 8 8 [facility] OUTPATIEN [facility] T EMERGENCY 17183 [facility] 8 8 [facility] T VISIT MODERATE SEVERITY
--- OUTSIDE RECORDS SUMMARY | 2017-06-07 14:24 | External Medical Summary Rpt | CCD ---
Author Author , [facility] Organization [facility] Address Unknown Phone [email or web address] Care Team Providers Care Clipper Machine Name Role Phone MARCIN SAHA, BURCH Unavailable Unavailable BRO MARCIN SAHA, BURCH Unavailable Unavailable BRO HUNTER, HUNTER Unavailable Unavailable HUNTER SPENCER, HUNTER Unavailable Unavailable SPENCER HUNTER SPENCER, HUNTER Unavailable Unavailable SPENCER HUNTER, JIMI J, Unavailable Unavailable HUNTER, JIMI J [facility], Unavailable [facility]available [facility] Un[facility] Unavailable [facility], [facility] Unavailable Unavailable [facility], [facility] JUDSON DUNCAN, Unavailable Unavailable JUDSON DUNCAN JUDSON DUNCAN, Unavailable Unavailable JUDSON DUNCAN JUDSON RIANNA, Unavailable Unavailable JUDSON, RIANNA [facility] Un[facility], [facility] CORINA FERRARI, Unavailable Unavailable CORINA FERRARI GAINEY Unavailable Unavailable STEVEN WEN SAVAGE, Unavailable Unavailable WEN SAVAGE [employer] Un[facility] Un[facility], [employer] [facility] [employer] [facility] Un[facility] Un[facility], [facility] Unavailable Unavailable INC, [facility] SUAREZ STERLING, SUAREZ STERLING Unavailable Unavailable SUAREZ STERLING, SUAREZ STERLING Unavailable Unavailable [facility], Unavailable Unavailable [facility] STOCK[place], ST[facility] Unavailable Unavailable [facility], [facility] Unavailable Unavailable SERVICES, [facility] MULBERRY URSZULA, Unavailable Unavailable MULBERRY URSZULA MALINDA SMITH T, Unavailable Unavailable MALINDA SMITH R HENRY, Unavailable Unavailable Gia SANTOS'AGUILARJessica MELO'AGUILAR Unavailable Unavailable [facility], Unavailable Unavailable [facility], [facility] Unavailable Unavailable LAB, [facility] Unavailable [facility]available LAB, [facility] RENUSCH, RENUSCH Unavailable Unavailable [id number], Unavailable Unavailable [id number] LULA POLANCO SMALL, Unavailable Unavailable LULA T SOKAN, KARYN O, Unavailable Unavailable SOKAN, KARYN O STRAWZELL CRI, Unavailable Unavailable STRAWZELL CRI STRAWZELL CRI, Unavailable Unavailable STRAWZELL CRI UMA HORTON, Unavailable Unavailable UMA HORTON [facility] Unavailable Unavailable #591, [facility] # Unavailable Unavailable [id number], [facility] # [id number] KEY DAVID KEY DAVID Unavailable Unavailable [facility] Unavailable Unavailable OF [facility], [facility] Purpose Continuity of Care Document - 11-28-2007 through 2016 Problems Code Diagnosis DOS Provider Status Z3040 ENCOUNTER 02-04-2017 [facility] SURVEILLANC GROUP E CONTRACEPTI VES UNS Z3009 ENCOUNTER 11-18-2016 [facility] OT GENERAL PHYSICIANS GROUP CENTRIFUGAL SCREEN TENDER&ADV ICE CONTRACEPT J069 ACUTE UPPER 10-20-2016 [facility], RESPIRATORY PLL[facility] INFECTION UNSPECIFIED R112 NAUSEA WITH 10-20-2016 [facility] VOMITING [facility], UNSPECIFIED PLLC N926 IRREGULAR 10-18-2016 [facility] UNSPECIFIED R1033 PERIUMBILIC 08-07-2016 [facility] PAIN [facility]YSICIANS, PLLC Z3046 ENCOUNTER 07-09-2016 [facility] SURVEILLANC PHYSICIANS E IMPL GROUP SUBDERMAL CONTRACEPT 6264 IRREGULAR 12-25-2014 [facility] MENSTRUAL PHYSICIANS CYCLE GROUP 80836 OTHER SIGN 11-23-2014 [facility] BREAST IM[facility] ASS 6116 GALACTORRHE 11-20-2014 [facility] A NOT PHYSICIANS ASSOCIATED GROUP WITH [place]IL[place]IRTH 28133 OTHER 11-20-2014 [facility] ABNORMAL PHYSICIANS FINDING GROUP RADIOLOGICA L EXAM BREAST 94135 UNSPECIFIED 11-22-2013 SUAREZ [place] [address] UNSPECIFIED 11-19-2013 [facility] CONJUNCTIVI INC TIS 18745 UNSPECIFIED 11-19-2013 BURCH BRO CONJUNCTIVI TIS 57546 ORBITAL 11-19-2013 MARCIN SAHA CELLULITIS 79495 PAIN IN OR 11-19-2013 JUDSON AROUND EYE DUNCAN 6820 CELLULITIS 11-19-2013 [facility] ABSCESS [facility] OF FACE INC 7823 EDEMA 11-19-2013 JUDSON DUNCAN V2543 SURVEILLANC 07-26-2013 HUNTER SPENCER E PREV PRSC IMPL SUBDERMAL CONTRACEPT V692 PROBLEMS 07-26-2013 COMBINED RELATED TO PHYSICIANS HIGH-RISK LA SEXUAL BEHAVIOR V255 INSERTION 07-06-2013 ELSA PALMER OF IMPLANTABLE SUBDERMAL CONTRACEPTI VE 3502 ATYPICAL 11-29-2012 [facility] FACE [facility]IN [facility]Y SERVICES 9104 FCE 09-19-2012 AN[facility] NCK&SCLP NO EMERGENCY EYE INSECT SERVICES BITE NONVNOM W/O INF 7241 PAIN IN 09-19-2011 [facility] THORACIC EMERGENCY SPINE SERVICES 7245 UNSPECIFIED 09-19-2011 JUDSON BACKACHE DUNCAN 5990 URINARY 08-04-2011 STRAWZELL TRACT CRI INFECTION SITE NOT SPECIFIED 9194 OTH MX&UNS 05-10-2011 [facility] S[facility] INSECT EMERGENCY BITE SERVICES NONVENOMOUS W/O INF 462 ACUTE 01-16-2011 [facility] 9134 ELB 12-15-2010 [facility] INSECT BITE NONVENOMOUS W/O INF 9164 HIP THI 12-15-2010 [facility] LEG[facility]ANK [facility] INSECT BITE NONVENOMOUS W/O INF V7231 ROUTINE 07-03-2010 [facility] OF EXAMINATION [facility]ANCES V745 SCREENING 07-03-2010 PATHOLOGY & EXAMINATION CYTOLOGY FOR LAB VENEREAL DISEASE 1320 PEDICULUS 04-30-2010 [facility] 220 BENIGN 10-04-2009 [facility] NEOPLASM OF [facility] 6202 OTHER AND 10-04-2009 PATHOLOGY & UNSPECIFIED CYTOLOGY OVARIAN LAB CYST 6259 UNSPEC 07-26-2009 [facility] OF W/FEMALE [place] [facility] ORGANS 87340 ABDOMINAL 07-26-2009 [facility] PAIN, LEFT HEALTH LOWER CLINIC OF [facility] 34108 ABDOMINAL 07-16-2009 [facility] PAIN, EMERGENCY UNSPECIFIED SERVICES SITE ASSOCIATES 96145 ABDOMINAL 07-16-2009 [facility] PA[facility], [facility] GENERALIZED INC 8730 OPEN WOUND 11-02-2008 [facility] SCALP EMERGENCY WITHOUT SERVICES MENTION ASSOCIATES COMPLICATIO N 9190 ABRASION/FR 11-02-2008 [facility] ICION BURN EMERGENCY OTH MX&UNS SERVICES SITE W/O ASSOCIATES INF 920 CONTUSION 11-02-2008 [facility] OF FACE EMERGENCY SCALP AND SERVICES NECK EXCEPT ASSOCIATES EYE E8490 PLACE OF 11-02-2008 [facility] OCCURRENCE, [facility]ICAL HOME [facility]ING [facility]OCIATES E8859 FALL FROM 11-02-2008 [facility] OTHER MEDICAL SLIPPING IMAGING TRIPPING OR ASSOCIATES STUMBLING E8888 OTHER FALL 11-02-2008 [facility] V202 ROUTINE 03-19-2008 [facility] CHILD HEALTH CHECK 7806 FEVER & OTH 02-04-2008 [facility] [place] [address] UNSPECIFIED 01-24-2008 [facility] SITE OF MEDICAL ANKLE IMAGING SPRAIN AND ASSOCIATES STRAIN E9179 OTHER 01-24-2008 [facility] STRIKING MEDICAL AGAINST IMAGING W/WO ASSOCIATES SUBSEQUENT FALL Medications Na ND Rx Da Fi Fi [...] 5- 5- 00 MA 52 ON ve MS 59 20 20 RT 3 D ED [...] Y TI # ON 10 05 91 00 02 02 00 30 3 WA 44 CL Ac 40 -1 -2 .0 L- 83 AR ti 60 2- 6- 00 MA 45 KE ve 35 20 20 RT 0 70 10 10 DE 5 PH RE AR K MA J CY #5 91 IB 68 02 02 00 30 5 WA 70 CL Ac UP 64 -1 -2 .0 L- 58 AR ti RO 50 2- 6- 00 MA 30 KE ve FE 22 20 20 RT 4 N 09 10 10 DE 40 0 PH RE 0 AR K MG MA J CY TA BL #5 ET 91 AC 00 11 12 00 8. 2 RI 81 GA Ac ET 09 -2 -0 00 TE 02 IN ti AM 30 4- 3- 0 52 EY ve IN 15 20 20 AI OP 01 09 09 D RI HE 0 PH CH N- AR AE CO M L D #3 S #3 93 8 TA BL ET 00 11 12 00 21 7 RI 81 GA Ac 14 -2 -0 .0 TE 02 IN ti 39 4- 3- 00 53 EY ve 89 20 20 AI 80 09 09 D RI 1 PH CH AR AE M L #3 S 93 8 AM 65 11 12 00 20 10 [...] .0 TE 28 t ti E 25 4- 7- 00 64 Av ve 0. 27 20 20 AI ai 5% 60 08 08 D la 4 PH bl LO AR e TI M ON #3 93 8 Immunization Name Date Rout CVX Reac Dose Comm Prov Is Faci e tion ent ider Refu lity Give sed n MPSV 07-2 32 NORF No FAMI 4 8-20 LEET LY VACC 08 , R CARE INE HENR GROU Y ASSO PS CIAT ACYW ES -135 SUBQ USE TDAP 07- 115 NORF No FAMI 8-20 LEET LY VACC 08 , R CARE INE HENR 7 Y ASSO YRS/ CIAT > IM ES Procedures Procedure DOS Code Location Performer Comment THERAPEUT 95975 [facility] ELSA IC 7 PHYSICIAN PROPHYLAC S GROUP TIC/DX INJECTION SUBQ/IM URINE 59690 [facility] ELSA 7 PHYSICIAN TEST S GROUP VISUAL COLOR CMPRSN METHS URINE 05924 [facility] TEST INC INC VISUAL COLOR CMPRSN METHS UNCLASSIF J3490 [facility] IED DRUGS 7 [facility] INC INC URNLS DIP 44019 [facility] STICK/TAB INC INC LET REAGENT AUTO MICROSCOP Y URINE 72517 [facility] TEST INC INC VISUAL COLOR CMPRSN METHS IAADIADOO 85883 [facility] 7 [facility] INFLUENZA INC INC IAADIADOO 67911 [facility] 7 [facility] [place] [place] [facility] [place] [place] [facility] STREPTOCO INC INC CCUS GROUP A COLLECTIO 85372 [facility] N VENOUS 6 [facility] [place] [place] [facility] [place] [place] [facility] BLOOD INC INC VENIPUNCT URE COMPREHEN 70521 [facility] SIVE 6 [facility] METABOLIC INC INC PANEL URINE 70385 [facility] 6 [facility] TEST INC INC VISUAL COLOR CMPRSN METHS URNLS DIP 81578 [facility] 6 [facility] STICK/TAB INC INC LET REAGENT AUTO MICROSCOP Y GONADOTRO 11701 [facility] PIN 6 [facility] [place] [place] [facility] [place] [place] [facility] CHORIONIC INC INC QUALITATI VE BLOOD 07952 [facility] COUNT 6 [facility] [place] [place] [facility] [place] [place] [facility] COMPLETE INC INC AUTO&AUTO DIFRNTL WBC CULTURE 62944 [facility] BACTERIAL 6 [facility] INC INC QUANTTATI VE COLONY COUNT URINE REMOVAL 52112 [facility] ELSA NON-BIODE 6 PHYSICIAN SPENCER GRADABLE S GROUP DRUG DELIVERY IMPLANT US BREAST 14139 KULWANT ROPER UNI REAL 5 MEDICAL DUNCAN TIME IMAGING WITH ASS IMAGE LIMITED CT ORBIT 23662 [facility] SELLA/POS 4 [facility] T INC INC FOSSA/EAR W/[place] [address] JUDSON JUDSON MAXILLOFA 4 DUNCAN DUNCAN CIAL W/O CONTRAST MATERIAL 3D 38934 [facility] RENDERING 4 [facility] INC INC W/INTERP& POSTPROC DIFF WORK STATION URINE 25080 [facility] 4 [facility] TEST INC INC VISUAL COLOR CMPRSN METHS CUL BACT 11393 COMBINED COMBINED XCPT 3 PHYSICIAN PHYSICIAN URINE S LA S LA BLOOD/STO OL AEROBIC ISOL ANTIBODY 05085 COMBINED COMBINED CHLAMYDIA 3 PHYSICIAN PHYSICIAN S LA S LA URINE 95196 ELSA HUNTER 3 SPENCER SPENCER TEST VISUAL COLOR CMPRSN METHS ETONOGEST J7307 ELSA HUNTER REL 3 SPENCER SPENCER CNTRACPT IMPL SYS INCL IMPL & SPL INSJ 39949 ELSA HUNTER NON-BIODE 3 SPENCER SPENCER GRADABLE DRUG DELIVERY IMPLANT URNLS DIP 90456 [facility] 2 [facility] [place] [place] [facility] STICK/TAB INC INC LET REAGENT AUTO MICROSCOP Y URINE 36541 [facility] 2 [facility] TEST INC INC VISUAL COLOR CMPRSN METHS RADIOLOGI 32730 JUDSON JUDSON C EXAM 2 DUNCAN DUNCAN CHEST 2 VIEWS FRONTAL&L ATERAL RADEX 50416 JUDSON JUDSON SPINE 2 DUNCAN DUNCAN THORACIC 3 VIEWS URNLS DIP 18279 STRAWZELL STRAWZELL 1 CRI CRI STICK/TAB LET RGNT NON-AUTO W/O MICRSCP CULTURE 75737 COMBINED COMBINED BACTERIAL 1 PHYSICIAN PHYSICIAN S LA S LA QUANTTATI VE COLONY COUNT URINE URINE 95396 [facility]TER 0 HEALTH SPENCER TEST CLINIC OF VISUAL FRANCES COLOR CMPRSN METHS INSERTION 40804 [facility] H[facility]TER 0 HEALTH SPENCER IMPLANTAB CLINIC OF LE FRANCES CONTRACEP TIVE CAPSULES ETONOGEST J7307 [facility]TER REL 0 HEALTH SPENCRE CNTRACPT CLINIC OF IMPL SYS FRANCES INCL IMPL & SPL CYTP C/V 28771 PATHOLOGY PATHOLOGY AUTO THIN 0 & & LYR CYTOLOGY CYTOLOGY PREPJ SCR LAB LAB MNL RESCR PHYS IADNA 25831 PATHOLOGY PATHOLOGY NEISSERIA 0 & & CYTOLOGY CYTOLOGY GONORRHOE LAB LAB AE AMPLIFIED PROBE TQ IADNA 00190 PATHOLOGY PATHOLOGY CHLAMYDIA 0 & & CYTOLOGY CYTOLOGY TRACHOMAT LAB LAB IS AMPLIFIED PROBE TQ APPLICATI 9977 [facility] ON/ADMIN 0 [facility] ADHESION INC INC BARRIER SUBSTANCE S OTH 6525 [facility] LAPAROSCO 0 [facility] PIC LOCAL INC INC EXCISION/ DESTRUC OVARY LAPS 67029 [facility] FULG/EXC 0 [facility] OVARY INC INC VISCERA/[place] [address] PATHOLOGY PATHOLOGY SURG 0 & & PATHOLOGY CYTOLOGY CYTOLOGY LAB LAB GROSS&STEVEN ROSCOPIC EXAM LAPAROSCO 09219 [facility] HUNTER, PY W/RMVL 0 HEALTH JIMI J ADNEXAL CLINIC OF STRUCTURE S RAMIREZ PLLC ANESTHESI 63897 [facility] Lynn HORTON 0 ANESTH UMA A INTRAPERI OF THE TONEAL [place]UE[place] W/[place] [address] [facility] INFUSION 0 [facility] THERAPY/P INC INC ROPHYLAXI S /DX 1ST TO 1 HR THERAPEUT 44458 [facility] IC 0 [facility] INJECTION INC INC IV PUSH EACH NEW DRUG COMPREHEN 85789 [facility] SIVE 0 [facility] METABOLIC INC INC PANEL BLOOD 14252 [facility] COUNT 0 [facility] COMPLETE INC INC AUTO&AUTO DIFRNTL WBC GONADOTRO 26055 [facility] PIN 0 [facility] CHORIONIC INC INC QUALITATI VE URNLS DIP 41074 [facility] 9 [facility] STICK/TAB INC INC LET REAGENT AUTO MICROSCOP Y CULTURE 33632 [facility] BACTERIAL 9 [facility] INC INC QUANTTATI VE COLONY COUNT URINE BLOOD 44998 [facility] COUNT 9 [facility] COMPLETE INC INC AUTO&AUTO DIFRNTL WBC URINE 85297 [facility] 9 [facility] [place] [place] [facility] TEST INC [place] [address] [facility] JUDSON, ABDOMEN 9 MEDICAL RIANNA W/O IMAGING CONTRAST ASSOCIATE MATERIAL S CT PELVIS 74600 [facility] W/O 9 [facility] CONTRAST INC INC MATERIAL BASIC 77958 [facility] METABOLIC 9 [facility] PANEL INC INC CALCIUM TOTAL 3D 84318 [facility] [place] JUDSON, RENDERING 9 MEDICAL RIANNA IMAGING W/INTERP& ASSOCIATE [place] [address] [facility] R[facility] STREPTOCO 9 [facility] [place] [place] [facility] CCUS INC INC GROUP A 3D 94863 [facility] JUDSON, RENDERING 9 MEDICAL RIANNA IMAGING W/INTERP& [place]OCI[place] [address] STONE ROWLEYON HEAD/BRAI 9 [facility] N W/O INC INC CONTRAST MATERIAL 3D 07772 STONE STONE RENDERING 9 [facility] [place] [place] [facility] [place] [place] [facility] W/INTERP INC INC & [place] [address] STONE [facility] MAXILLOFA 9 [facility] [place] [place] [facility] [place] [place] [facility] CIAL W/O INC INC CONTRAST MATERIAL SIMPLE 83712 ANGELICA FERRARI, REPAIR 9 EMERGENCY [place] P SCALP/NEC SERVICES K/AX/BIRDIE T/TRUNK ASSOCIATE 2.5CM/< S CLOSURE 8659 [facility] SKIN&SUBC 9 [facility] [place] [place] [facility] UTANEOUS INC INC TISSUE OTHER SITES MPSV4 38852 FAMILY TOM, VACCINE 8 CARE R LEI GROUPS ASSOCIATE ACYW-135 S SUBQ USE TDAP 57366 FAMILY TOM, VACCINE 7 8 CARE R LEI YRS/> [place] [address] [facility] STREPTOCO 8 [facility] CCUS INC INC GROUP A RADEX 05171 [facility] ANKLE 8 [facility] COMPLETE INC INC MINIMUM 3 VIEWS RADIOLOGI 01336 [facility] C 8 [facility] EXAMINATI INC INC ON ANKLE 2 VIEWS Encounters Encounter Start End Date Code Location Performer Type Date OFFICE 46600 [facility] ELSA OUTPATIEN 7 7 PHYSICIAN T VISIT 5 S GROUP MINUTES OFFICE 40015 [facility] HUNTER OUTPATIEN 7 7 PHYSICIAN T VISIT S GROUP 15 MINUTES HOSPITAL [facility] - 7 7 [facility] OUTPATIEN INC T EMERGENCY 34927 LJ STOCKTON 7 7 PHYSICIAN DEPARTMEN S, PLLC T VISIT HIGH/URGE NT SEVERITY EMERGENCY 24117 [facility] 7 7 [facility] DEPARTMEN INC T VISIT LOW/MODER SEVERITY OFFICE 02289 [facility] BOLESPATIEN 7 7 [facility] T VISIT 5 INC MINUTES HOSPITAL [facility] - 7 7 [facility] OUTPATIEN INC T EMERGENCY 39030 LJ STARKEY 6 6 PHYSICIAN DEPARTMEN S, [facility] T VISIT HIGH/URGE NT SEVERITY HOSPITAL [facility] - 6 6 [facility] OUTPATIEN INC T EMERGENCY 98547 [facility] 6 6 [facility] DEPARTMEN INC T VISIT LOW/MODER SEVERITY OFFICE 45766 [facility] HUNTER OUTPATIEN 5 5 PHYSICIAN SPENCER T VISIT S GROUP 15 MINUTES HOSPITAL ST[facility] - 5 5 [facility] OUTPATIEN INC T OFFICE 65485 [facility] HUNTER OUTPATIEN 5 5 PHYSICIAN SPENCER T VISIT S GROUP 15 MINUTES OFFICE 50451 ERICK KATZ OUTPATIEN 4 4 T VISIT 10 MINUTES OFFICE 47674 ERICK SUAREZ STERLING OUTPATIEN 4 4 T VISIT 10 MINUTES OFFICE 08051 [facility] STER[facility]ING ERICK STERLING OUTPATIEN 4 4 T VISIT 10 MINUTES OFFICE 83084 [facility]ER[facility] SUAREZ STERLING OUTPATIEN 4 4 T NEW 20 MINUTES HOSPITAL [facility] - 4 4 [facility] OUTPATIEN INC T EMERGENCY 21255 MARCIN BURCH 4 4 [facility] DEPARTMEN T VISIT HIGH/URGE NT SEVERITY EMERGENCY 70569 ST[facility] 4 4 [facility] DEPARTMEN INC T VISIT MODERATE SEVERITY EMERGENCY 62305 [facility] 4 4 [facility] DEPARTMEN INC T VISIT LOW/MODER SEVERITY HOSPITAL [facility] - 4 4 [facility] OUTPATIEN INC T EMERGENCY 39866 KEY HERNANDEZ 4 4 DEPARTMEN T VISIT MODERATE SEVERITY OFFICE 23804 HUNTER HUNTER OUTPATIEN 3 3 SPENCER SPENCER T VISIT 15 MINUTES EMERGENCY 49759 [facility] 3 3 [facility] DEPARTMEN INC T VISIT LOW/MODER SEVERITY HOSPITAL [facility] - 3 3 [facility] OUTPATIEN INC T EMERGENCY 05299 ANGELICA SCHMITT 3 3 EMERGENCY SE[facility] DEPARTMEN SERVICES T VISIT MODERATE SEVERITY EMERGENCY 66745 ANGELICA HERNANDEZ 3 3 EMERGENCY DEPARTMEN SERVICES T VISIT MODERATE SEVERITY EMERGENCY 56489 [facility] 3 3 [facility] DEPARTMEN INC T VISIT LOW/MODER SEVERITY HOSPITAL [facility] - 3 3 [facility] OUTPATIEN INC T EMERGENCY 16114 STONE 2 2 [facility] DEPARTMEN INC T VISIT LOW/MODER SEVERITY EMERGENCY 42319 ANGELICA SAVAGE 2 2 EMERGENCY [facility] DEPARTMEN SERVICES T VISIT HIGH/URGE NT SEVERITY HOSPITAL [facility] - 2 2 [facility] OUTPATIEN INC T OFFICE 57525 STRAWZELL STRAWZELL OUTPATIEN 1 1 CRI CRI T VISIT 15 MINUTES HOSPITAL [facility] - 1 1 [facility] OUTPATIEN INC T EMERGENCY 07681 [facility] 1 1 [facility] [place] [place] [facility] DEPARTMEN INC T VISIT LOW/MODER SEVERITY EMERGENCY 64537 ANGELICA SAVAGE 1 1 EMERGENCY [facility] SERVICES T VISIT MODERATE SEVERITY OFFICE 79149 STONE IRTTER OUTPATIEN 1 1 [facility] VISIT [facility] 15 MINUTES OFFICE 40946 FAMILY MULMARIN OUTPATIEN 1 1 CARE URSZULA T VISIT ASSOCIATE 15 S MINUTES [facility] 33875 [facility] H[facility] PREVENTIV 0 0 HEALTH SPENCER E MED EST CLINIC OF PATIENT FRANCES OFFICE 98766 [facility] R[facility]TER OUTPATIEN 0 0 [facility]DLE T NEW 10 [facility] MINUTES HOSPITAL ST[facility] - 0 0 [facility] OUTPATIEN INC T HOSPITAL [facility] - 0 0 [facility] OUTPATIEN INC T OFFICE 88254 [facility] OUTPATIEN 0 0 HEALTH JIMI J T VISIT CLINIC OF 15 MINUTES [facility] OFFICE 37619 [facility], OUTPATIEN 9 9 HEALTH JIMI J T NEW 30 CLINIC OF MINUTES [facility] EMERGENCY 77896 ANGELICA SAVAGE, DEPT 9 9 EMERGENCY WEN S VISIT SERVICES HIGH SEVERITY& ASSOCIATE THREAT S FUNJ EMERGENCY 72466 [facility] 9 9 [facility] [place] [place] [facility] DEPARTMEN INC T VISIT HIGH/URGE NT SEVERITY HOSPITAL [facility] - 9 9 [facility] [place] [place] [facility] OUTPATIEN INC T EMERGENCY 05587 [facility] 9 9 [facility] [place] [place] [facility] DEPARTMEN INC T VISIT LIMITED/M INOR PROB EMERGENCY 39580 ANGELICA LIZ, 9 9 EMERGENCY [facility] SERVICES O T VISIT MODERATE ASSOCIATE SEVERITY S [facility] STONE - 9 9 [facility] OUTPATIEN INC T EMERGENCY 52479 STONE 9 9 [facility] [place] [place] [facility] T VISIT MODERATE SEVERITY EMERGENCY 55845 ANGELICA FERRARI, DEPT 9 9 EMERGENCY [place] P VISIT SERVICES HIGH SEVERITY& ASSOCIATE THREAT S [facility] STONE - 9 9 MEM [facility] OUTPATIEN INC T PERIODIC 42903 YASMEEN SANTOS 8 8 CARE Gia ODOM MARIO EST ASSOCIATE PATIENT S 5-11YRS OFFICE 06795 MARY JO SMITH 8 8 CARE MALINDA T T VISIT ASSOCIATE 15 S MINUTES HOSPITAL [facility] - 8 8 [facility] [place] [place] [facility] OUTPATIEN INC T EMERGENCY 12627 [facility] 8 8 [facility] [place] [place] [facility] T VISIT MODERATE SEVERITY EMERGENCY 20551 STONE POLANCO, 8 8 [facility] T VISIT PROF SERV LOW/MODER SEVERITY EMERGENCY 88933 ST[facility] 8 8 [facility] [place] [place] [facility] INC T VISIT MODERATE SEVERITY HOSPITAL STONE - 8 8 [facility] OUTPATIEN INC T
--- OUTSIDE RECORDS SUMMARY | 2017-06-07 14:24 | External Medical Summary Rpt | CCD ---
Author Author , [facility] Organization [facility] Address Unknown Phone Care Team Providers Care Table Filler Name Role Phone MARCIN SAHA, BURCH Unavailable [...] Unavailable STEVEN WEN SAVAGE, Unavailable Unavailable [facility] [employer] Unavailable Unavailable [facility], [employer] [facility] Unavailable Unavailable [facility], [facility] Unavailable Unavailable INC, [facility] SUAREZ STERLING, [facility] Unavailable Unavailable [facility], [facility] ST[facility] Unavailable Unavailable [facility], Unavailable Unavailable [facility] [place], [facility] Unavailable Unavailable [facility] Un[facility] Unavailable [facility], [facility] Unavailable Unavailable SERVICES, [facility] MULBERRY URSZULA, Unavailable Unavailable [facility] URSZUL[facility] MALINDA SMITH T, Unavailable Unavailable MALINDA SMITH R HENRY, Unavailable Unavailable Gia SANTOS'AGUILARJessica MELO'AGUILAR Unavailable Unavailable [facility], Unavailable Unavailable [facility], [facility], [...] [facility]Y [id number] # Unavailable Unavailable [id number], [facility] # [id number] KEY DAVID KEY DAVID Unavailable Unavailable [facility] Unavailable Unavailable OF [facility], [facility] Purpose Continuity of Care Document - 11-28-2007 through 2016 Problems Code Diagnosis DOS Provider Status Z3040 ENCOUNTER 02-04-2017 [facility] FOR [facility] SURVEILLANC GROUP E CONTRACEPTI VES UNS Z3009 ENCOUNTER 11-18-2016 [facility] OT GENERAL PHYSICIANS GROUP CUSTOMER RELATIONS ADVISOR&ADV ICE CONTRACEPT J069 ACUTE UPPER 10-20-2016 [facility]ORY [facility] INFECTION UNSPECIFIED R112 NAUSEA WITH 10-20-2016 [facility], UNSPECIFIED PLLC N926 IRREGULAR 10-18-2016 [facility] UNSPECIFIED R1033 PERIUMBILIC 08-07-2016 [facility], PLLC Z3046 ENCOUNTER 07-09-2016 [facility] SURVEILLANC PHYSICIANS E IMPL GROUP SUBDERMAL CONTRACEPT 6264 IRREGULAR 12-25-2014 [facility] MENSTRUAL PHYSICIANS CYCLE GROUP 96964 OTHER SIGN 11-23-2014 [facility] BREAST [facility] 6116 GALACTORRHE 11-20-2014 [facility] A NOT PHYSICIANS ASSOCIATED GROUP WITH [place] 45506 OTHER 11-20-2014 [facility] ABNORMAL PHYSICIANS FINDING GROUP RADIOLOGICA L EXAM BREAST 13765 UNSPECIFIED 11-22-2013 SU[facility] [place] [address] UNSPECIFIED 11-19-2013 [facility] CONJUNCTIVI INC TIS 77598 UNSPECIFIED 11-19-2013 B[facility] BRO CONJUNCTIVI TIS 12681 ORBITAL 11-19-2013 MARCIN SAHA CELLULITIS 64404 PAIN IN OR 11-19-2013 JUDSON AROUND EYE [...] SITE NOT SPECIFIED 9194 OTH MX&UNS 05-10-2011 [facility]SE[facility]ERGENCY BITE SERVICES NONVENOMOUS W/O INF 462 ACUTE 01-16-2011 [facility] PHARYNGITIS [facility] 9134 ELB 12-15-2010 [facility] INSECT BITE NONVENOMOUS W/O INF 9164 HIP THI 12-15-2010 [facility] INSECT BITE NONVENOMOUS W/O INF V7231 ROUTINE 07-03-2010 [facility] EXAMINATION [facility]ES V745 SCREENING 07-03-2010 PATHOLOGY & EXAMINATION CYTOLOGY FOR LAB VENEREAL DISEASE 1320 PEDICULUS 04-30-2010 [facility] CAPITIS [facility] 220 BENIGN 10-04-2009 [facility]OPLASM OF [facility] OVARY [facility] 6202 OTHER AND 10-04-2009 PATHOLOGY & UNSPECIFIED CYTOLOGY OVARIAN LAB CYST 6259 UNSPEC 07-26-2009 [facility] CLINIC OF W/FEMALE [facility] ORGANS 73475 ABDOMINAL 07-26-2009 WOMEN'S PAIN, LEFT HEALTH LOWER CLINIC OF QUADRANT [facility] [address]3499 ABDOMINAL 07-16-2009 ANGELICA PAIN, EMERGENCY UNSPECIFIED SERVICES SITE ASSOCIATES 16365 ABDOMINAL 07-16-2009 [facility] GENERALIZED INC 8730 OPEN WOUND 11-02-2008 AN[facility] SCALP EMERGENCY WITHOUT SERVICES MENTION ASSOCIATES COMPLICATIO N 9190 ABRASION/FR 11-02-2008 AN[facility]ICA ICION BURN EMERGENCY OTH MX&UNS SERVICES SITE W/O ASSOCIATES INF 920 CONTUSION 11-02-2008 ANGELICA OF FACE EMERGENCY SCALP AND SERVICES NECK EXCEPT ASSOCIATES EYE E8490 PLACE OF 11-02-2008 [facility] OCC[facility], [facility]ICAL HOME [facility]ING ASSOCIATES E8859 FALL FROM 11-02-2008 [facility] OTHER MEDICAL SLIPPING IMAGING TRIPPING OR ASSOCIATES STUMBLING E8888 OTHER FALL 11-02-2008 [facility]ATES V202 ROUTINE 03-19-2008 [facility] OR [facility] CHILD HEALTH CHECK 7806 FEVER & OTH 02-04-2008 [facility] PROF [place] [address] UNSPECIFIED 01-24-2008 [facility] SITE OF MEDICAL ANKLE IMAGING SPRAIN AND ASSOCIATES STRAIN E9179 OTHER 01-24-2008 [facility] STRIKING MEDICAL AGAINST IMAGING W/WO ASSOCIATES SUBSEQUENT [...] 5- 5- 00 MA 52 ON ve WA 59 20 20 RT 3 D ED [...] 20 AI OP 01 09 09 D AL HE 0 PH CH N- AR AE CO M L D #3 S #3 93 8 TA BL ET 00 11 12 00 21 7 RI 81 GA Ac 14 -2 -0 .0 TE 02 IN ti 39 4- 3- 00 53 EY ve 89 20 20 AI 80 09 09 D AL 1 PH CH AR AE M L [...] Procedure DOS Code Location Performer Comment THERAPEUT 82069 [facility] ELSA IC 7 PHYSICIAN PROPHYLAC S GROUP TIC/DX INJECTION SUBQ/IM URINE 65820 [facility] ELSA 7 PHYSICIAN TEST S GROUP VISUAL COLOR CMPRSN METHS URINE 97507 [facility] 7 [facility] TEST INC INC VISUAL COLOR CMPRSN METHS UNCLASSIF J3490 [facility] IED DRUGS 7 [facility] INC INC URNLS DIP 25227 [facility] 7 [facility] STICK/TAB INC INC LET REAGENT AUTO MICROSCOP Y URINE 43846 [facility] 7 [facility] TEST INC INC VISUAL COLOR CMPRSN METHS IAADIADOO 43571 [facility] 7 [facility] INFLUENZA INC INC IAADIADOO 74758 [facility] 7 [facility] STREPTOCO INC INC CCUS GROUP A COLLECTIO 68732 ST[facility] N VENOUS 6 [facility] BLOOD INC INC VENIPUNCT URE COMPREHEN 49418 [facility] SIVE 6 [facility] METABOLIC INC INC PANEL URINE 11791 [facility] 6 [facility] TEST INC INC VISUAL COLOR CMPRSN METHS URNLS DIP 89071 [facility] 6 [facility] STICK/TAB INC INC LET REAGENT AUTO MICROSCOP Y GONADOTRO 58927 [facility] PIN 6 [facility] CHORIONIC INC INC QUALITATI VE BLOOD 93566 [facility] COUNT 6 [facility] COMPLETE INC INC AUTO&AUTO DIFRNTL WBC CULTURE 32377 [facility] BACTERIAL 6 [facility] INC INC QUANTTATI VE COLONY COUNT URINE REMOVAL 38447 [facility] ELSA NON-BIODE 6 PHYSICIAN SPENCER GRADABLE S GROUP DRUG DELIVERY IMPLANT US BREAST 50263 KULWANT ROPER UNI REAL 5 MEDICAL DUNCAN TIME IMAGING WITH ASS IMAGE LIMITED CT ORBIT 29255 [facility] SELLA/POS 4 [facility] T INC INC FOSSA/EAR W/[place] [address] JUDSON JUDSON MAXILLOFA 4 DUNCAN DUNCAN CIAL W/O CONTRAST MATERIAL 3D 28745 [facility] RENDERING 4 [facility] INC W/INTERP& POSTPROC DIFF WORK STATION URINE 31725 [facility] 4 [facility] TEST INC INC VISUAL COLOR CMPRSN METHS CUL BACT 95415 COMBINED COMBINED XCPT 3 PHYSICIAN PHYSICIAN URINE S LA S LA BLOOD/STO OL AEROBIC ISOL ANTIBODY 53795 COMBINED COMBINED CHLAMYDIA 3 PHYSICIAN PHYSICIAN S LA S LA URINE 60240 ELSA HUNTER 3 SPENCER SPENCER TEST VISUAL COLOR CMPRSN METHS ETONOGEST J7307 ELSA HUNTER REL 3 SPENCER SPENCER CNTRACPT IMPL SYS INCL IMPL & SPL INSJ 44474 ELSA HUNTER NON-BIODE 3 SPENCER SPENCER GRADABLE DRUG DELIVERY IMPLANT URNLS DIP 49369 [facility] 2 [facility] STICK/TAB INC INC LET REAGENT AUTO MICROSCOP Y URINE 60127 [facility] 2 [facility] TEST INC INC VISUAL COLOR CMPRSN METHS RADIOLOGI 76266 JUDSON JUDSON C EXAM 2 DUNCAN DUNCAN CHEST 2 VIEWS FRONTAL&L ATERAL RADEX 64393 JUDSON JUDSON SPINE 2 DUNCAN DUNCAN THORACIC 3 VIEWS URNLS DIP 51110 STRAWZELL STRAWZELL 1 CRI CRI STICK/TAB LET RGNT NON-AUTO W/O MICRSCP CULTURE 18728 COMBINED COMBINED BACTERIAL 1 PHYSICIAN PHYSICIAN S LA S LA QUANTTATI VE COLONY COUNT URINE URINE 71883 [facility] 0 HEALTH SPENCER TEST CLINIC OF VISUAL FRANCES COLOR CMPRSN METHS INSERTION 59078 [facility] 0 HEALTH SPENCER IMPLANTAB CLINIC OF LE FRANCES CONTRACEP TIVE CAPSULES ETONOGEST J7307 [facility] REL 0 HEALTH SPENCER CNTRACPT CLINIC OF IMPL SYS FRANCES INCL IMPL & SPL CYTP C/V 55367 PATHOLOGY PATHOLOGY AUTO THIN 0 & & LYR CYTOLOGY CYTOLOGY PREPJ SCR LAB LAB MNL RESCR PHYS IADNA 11234 PATHOLOGY PATHOLOGY NEISSERIA 0 & & CYTOLOGY CYTOLOGY GONORRHOE LAB LAB AE AMPLIFIED PROBE TQ IADNA 08897 PATHOLOGY PATHOLOGY CHLAMYDIA 0 & & CYTOLOGY CYTOLOGY TRACHOMAT LAB LAB IS AMPLIFIED PROBE TQ APPLICATI 9977 [facility] ON/ADMIN 0 [facility] ADHESION INC INC BARRIER SUBSTANCE S OTH 6525 [facility] LAPAROSCO 0 [facility] PIC LOCAL INC INC EXCISION/ DESTRUC OVARY LAPS 07140 [facility] FULG/EXC 0 [facility] OVARY INC INC VISCERA/[place] [address] PATHOLOGY PATHOLOGY SURG 0 & & PATHOLOGY CYTOLOGY CYTOLOGY LAB LAB GROSS&STEVEN ROSCOPIC EXAM LAPAROSCO 54741 [facility], PY W/RMVL 0 HEALTH JIMI J ADNEXAL CLINIC OF STRUCTURE S RAMIREZ PLLC ANESTHESI 04305 [facility] Lynn [place] 0 ANESTH UMA A INTRAPERI OF THE TONEAL [place] W/L[place] [address] [facility] INFUSION 0 [facility] THERAPY/P INC INC ROPHYLAXI S /DX 1ST TO 1 HR THERAPEUT 25665 [facility] IC 0 [facility] INJECTION INC INC IV PUSH EACH NEW DRUG COMPREHEN 76760 [facility] SIVE 0 [facility] METABOLIC INC INC PANEL BLOOD 02298 [facility] COUNT 0 [facility] COMPLETE INC INC AUTO&AUTO DIFRNTL WBC GONADOTRO 77630 [facility] PIN 0 [facility] CHORIONIC INC INC QUALITATI VE URNLS DIP 34381 [facility] 9 [facility] STICK/TAB INC INC LET REAGENT AUTO MICROSCOP Y CULTURE 81750 [facility] BACTERIAL 9 [facility] INC INC QUANTTATI VE COLONY COUNT URINE BLOOD 83840 [facility] COUNT 9 [facility] COMPLETE INC INC AUTO&AUTO DIFRNTL WBC URINE 53526 [facility] 9 [facility] TEST INC [place] [address] [facility] JUDSON, ABDOMEN 9 MEDICAL RIANNA W/O IMAGING CONTRAST ASSOCIATE MATERIAL S CT PELVIS 91596 [facility] W/O 9 [facility] CONTRAST INC INC MATERIAL BASIC 35372 [facility] METABOLIC 9 [facility] PANEL INC INC CALCIUM TOTAL 3D 38983 [facility] JUDSON, RENDERING 9 MEDICAL RIANNA IMAGING W/INTERP& ASSOCIATE [place] [address] ST[facility] R[facility]TER STREPTOCO 9 [facility] CCUS INC INC GROUP A 3D 51973 [facility] JUDSON, RENDERING 9 MEDICAL RIANNA IMAGING W/INTERP& [place] [address] STONE ROWLEYON HEAD/BRAI 9 [facility] N W/O INC INC CONTRAST MATERIAL 3D 79126 STONE STONE RENDERING 9 [facility] W/INTERP INC INC & [place] [address] STONE STONE MAXILLOFA 9 [facility] CIAL W/O INC INC CONTRAST MATERIAL SIMPLE 81639 ANGELICA FERRARI, REPAIR 9 EMERGENCY [place] P SCALP/NEC SERVICES K/AX/BIRDIE T/TRUNK ASSOCIATE 2.5CM/< S CLOSURE 8659 [facility] SKIN&SUBC 9 [facility] UTANEOUS INC INC TISSUE OTHER SITES MPSV4 93887 FAMILY TOM, VACCINE 8 CARE R LEI GROUPS ASSOCIATE ACYW-135 S SUBQ USE TDAP 40371 FAMILY TOM, VACCINE 7 8 CARE R LEI YRS/> [place] [address] [facility] STREPTOCO 8 [facility] CCUS INC INC GROUP A RADEX 21036 [facility] ANKLE 8 [facility] COMPLETE INC INC MINIMUM 3 VIEWS RADIOLOGI 09662 [facility] C 8 [facility] EXAMINATI INC INC ON ANKLE 2 VIEWS Encounters Encounter Start End Date Code Location Performer Type Date OFFICE 85782 [facility] ELSA OUTPATIEN 7 7 PHYSICIAN T VISIT 5 S GROUP MINUTES OFFICE 65720 [facility] HUNTER OUTPATIEN 7 7 PHYSICIAN T VISIT S GROUP 15 MINUTES HOSPITAL [facility] - 7 7 [facility] OUTPATIEN INC T EMERGENCY 01149 LJ [place] 7 7 PHYSICIAN DEPARTMEN S, PLLC T VISIT HIGH/URGE NT SEVERITY EMERGENCY 60526 [facility] 7 7 [facility] DEPARTMEN INC T VISIT LOW/MODER SEVERITY OFFICE 71818 [facility] BOLESPATIEN 7 7 [facility] T VISIT 5 INC MINUTES HOSPITAL ST[facility] - 7 7 [facility] OUTPATIEN INC T EMERGENCY 68257 LJ STARKEY 6 6 PHYSICIAN DEPARTMEN S, [facility] T VISIT HIGH/URGE NT SEVERITY HOSPITAL [facility] - 6 6 [facility] OUTPATIEN INC T EMERGENCY 01672 [facility] 6 6 [facility] DEPARTMEN INC T VISIT LOW/MODER SEVERITY OFFICE 06428 [facility] HUNTER OUTPATIEN 5 5 PHYSICIAN SPENCER T VISIT S GROUP 15 MINUTES HOSPITAL [facility] - 5 5 [facility] OUTPATIEN INC T OFFICE 80449 [facility] HUNTER OUTPATIEN 5 5 PHYSICIAN SPENCER T VISIT S GROUP 15 MINUTES OFFICE 16462 ERICK KATZ OUTPATIEN 4 4 T VISIT 10 MINUTES OFFICE 54991 ERICK [facility] OUTPATIEN 4 4 T VISIT 10 MINUTES OFFICE 66774 [facility] ERICK [facility]ER[facility] OUTPATIEN 4 4 T VISIT 10 MINUTES OFFICE 41656 [facility] OUTPATIEN 4 4 T NEW 20 MINUTES HOSPITAL [facility] - 4 4 [facility] OUTPATIEN INC T EMERGENCY 10789 MARCIN BURCH 4 4 [facility] DEPARTMEN T VISIT HIGH/URGE NT SEVERITY EMERGENCY 96416 [facility] 4 4 [facility] DEPARTMEN INC T VISIT MODERATE SEVERITY EMERGENCY 38875 [facility] 4 4 [facility] DEPARTMEN INC T VISIT LOW/MODER SEVERITY HOSPITAL [facility] - 4 4 [facility] OUTPATIEN INC T EMERGENCY 82251 KEY HERNANDEZ 4 4 DEPARTMEN T VISIT MODERATE SEVERITY OFFICE 43709 [facility]TER HUNTER OUTPATIEN 3 3 SPENCER SPENCER T VISIT 15 MINUTES EMERGENCY 39072 [facility] 3 3 [facility] DEPARTMEN INC T VISIT LOW/MODER SEVERITY HOSPITAL [facility] - 3 3 [facility] OUTPATIEN INC T EMERGENCY 34159 ANGELICA SCHMITT 3 3 EMERGENCY SE[facility] DEPARTMEN SERVICES T VISIT MODERATE SEVERITY EMERGENCY 79345 ANGELICA HERNANDEZ 3 3 EMERGENCY DEPARTMEN SERVICES T VISIT MODERATE SEVERITY EMERGENCY 79184 [facility] 3 3 [facility] DEPARTMEN INC T VISIT LOW/MODER SEVERITY HOSPITAL [facility] - 3 3 [facility] OUTPATIEN INC T EMERGENCY 67185 [facility] 2 2 [facility] DEPARTMEN INC T VISIT LOW/MODER SEVERITY EMERGENCY 49553 ANGELICA SAVAGE 2 2 EMERGENCY [facility] DEPARTMEN SERVICES T VISIT HIGH/URGE NT SEVERITY HOSPITAL [facility] - 2 2 [facility] OUTPATIEN INC T OFFICE 34334 STRAWZELL STRAWZELL OUTPATIEN 1 1 CRI CRI T VISIT 15 MINUTES HOSPITAL [facility] - 1 1 [facility] OUTPATIEN INC T EMERGENCY 37127 [facility] 1 1 [facility] DEPARTMEN INC T VISIT LOW/MODER SEVERITY EMERGENCY 60854 ANGELICA SAVAGE 1 1 EMERGENCY [facility] SERVICES T VISIT MODERATE SEVERITY OFFICE 09006 [facility] R[facility]TER OUTPATIEN 1 1 [facility] VISIT [facility] 15 MINUTES OFFICE 45225 FAMILY MULMARIN OUTPATIEN 1 1 CARE URSZULA T VISIT ASSOCIATE 15 S MINUTES [facility] 26933 [facility] H[facility] PREVENTIV 0 0 HEALTH SPENCER E MED EST CLINIC OF PATIENT FRANCES OFFICE 53983 [facility] R[facility] OUTPATIEN 0 0 [facility] T NEW 10 [facility] MINUTES [facility]OSPITAL [facility] - 0 0 [facility] OUTPATIEN INC T HOSPITAL STONE - 0 0 [facility] OUTPATIEN INC T OFFICE 90929 [facility], OUTPATIEN 0 0 HEALTH JIMI J T VISIT CLINIC OF 15 MINUTES [facility] OFFICE 48192 [facility], OUTPATIEN 9 9 HEALTH JIMI J T NEW 30 CLINIC OF MINUTES [facility] EMERGENCY 50401 ANGELICA SAVAGE, DEPT 9 9 EMERGENCY WEN S VISIT SERVICES HIGH SEVERITY& ASSOCIATE THREAT S FUNJ EMERGENCY 28634 STONE 9 9 [facility] DEPARTMEN INC T VISIT HIGH/URGE NT SEVERITY HOSPITAL [facility] - 9 9 [facility] OUTPATIEN INC T EMERGENCY 36866 STONE 9 9 [facility] DEPARTMEN INC T VISIT LIMITED/M INOR PROB EMERGENCY 82774 ANGELICA LIZ, 9 9 EMERGENCY [facility] SERVICES O T VISIT MODERATE ASSOCIATE SEVERITY S [facility] STONE - 9 9 [facility] OUTPATIEN INC T EMERGENCY 61948 STONE 9 9 [facility] T VISIT MODERATE SEVERITY EMERGENCY 56610 ANGELICA FERRARI, DEPT 9 9 EMERGENCY [place] P VISIT SERVICES HIGH SEVERITY& ASSOCIATE THREAT S [facility] STONE - 9 9 MEM [facility] OUTPATIEN INC T PERIODIC 08879 YASMEEN SANTOS 8 8 CARE Gia ODOM MARIO EST ASSOCIATE PATIENT S 5-11YRS OFFICE 95676 MARY JO SMITH 8 8 CARE MALINDA T T VISIT ASSOCIATE 15 S MINUTES HOSPITAL [facility] - 8 8 [facility] OUTPATIEN INC T EMERGENCY 38553 ST[facility] 8 8 [facility] T VISIT MODERATE SEVERITY EMERGENCY 30727 STONE POLANCO, 8 8 [facility] T VISIT PROF SERV LOW/MODER SEVERITY EMERGENCY 51701 [facility] 8 8 [facility] INC T VISIT MODERATE SEVERITY HOSPITAL [facility] - 8 8 [facility] OUTPATIEN INC T
--- OUTSIDE RECORDS SUMMARY | 2017-06-07 14:25 | External Medical Summary Rpt | CCD ---
Author Author , KYAW CRUMPAUGUSTO Address Unknown Phone [email or web address] Immunization Name Date Rout CVX Reac Dose Comm Prov Is Faci e tion ent ider Refu lity Give sed n Rodolfo 10-0 10 999 Hist H149 No H149 o-IP 2-20 oric V 00 al Info rmat ion - Sour ce Unsp ecif ied MMR 10-0 3 999 Hist H149 No H149 2-20 oric 00 al Info rmat ion - Sour ce Unsp ecif ied DTaP 10-0 107 999 Hist H149 No H149 , UF 2-20 oric 00 al Info rmat ion - Sour ce Unsp ecif ied Hep 02-1 8 999 Hist H149 No H149 B, 0-19 oric ped/ 99 al adol Info rmat ion - Sour ce Unsp ecif ied MMR 01-1 3 999 Hist H149 No H149 4-19 oric 98 al Info rmat ion - Sour ce Unsp ecif ied Hib, 01-1 17 999 Hist H149 No H149 UF 4-19 oric 98 al Info rmat ion - Sour ce Unsp ecif ied DTaP 01-1 107 999 Hist H149 No H149 , UF 4-19 oric 98 al Info rmat ion - Sour ce Unsp ecif ied Hep 09-2 8 999 Hist H149 No H149 B, 9-19 oric ped/ 97 al adol Info rmat ion - Sour ce Unsp ecif ied Rodolfo 05-2 2 999 Hist H149 No H149 o-OP 2-19 oric V 97 al Info rmat ion - Sour ce Unsp ecif ied DTP- 05-2 22 999 Hist H149 No H149 Hib 2-19 oric 97 al Info rmat ion - Sour ce Unsp ecif ied DTP- 02-1 22 999 Hist H149 No H149 Hib 3-19 oric 97 al Info rmat ion - Sour ce Unsp ecif ied Rodolfo 02-1 2 999 Hist H149 No H149 o-OP 3-19 oric V 97 al Info rmat ion - Sour ce Unsp ecif ied Rodolfo 12-1 2 999 Hist H149 No H149 o-OP 2-19 oric V 96 al Info rmat ion - Sour ce Unsp ecif ied DTP- 12-1 22 999 Hist H149 No H149 Hib 2-19 oric 96 al Info rmat ion - Sour ce Unsp ecif ied Hep 11-0 8 999 Hist H149 No H149 B, 6-19 oric ped/ 96 al adol Info rmat ion - Sour ce Unsp ecif ied
--- OUTSIDE RECORDS SUMMARY | 2017-06-07 14:25 | External Medical Summary Rpt ---
Author Author KYAW De La Rosa, KYAW De La Rosa Organization [employer] Address Unknown Phone Unavailable
--- OUTSIDE RECORDS SUMMARY | 2017-06-07 14:25 | External Medical Summary Rpt | CCD ---
Author Author , KYAW CRUMPAUGUSTO Address Unknown Phone [email or web address] Immunization Name Date Rout CVX Reac Dose [...]
--- NOTE | 2017-06-07 15:09 | Urgent Treatment Center Report ---
History of Present Issue Date/Time Seen by Provider 06/07/17 1509 Visit Reason Pt arrived:Walked Presenting Problem:EARS AND THROAT HURTING SINCE WEDNESDAY Location if Accident: Onset of symptoms date/time:/ or onset unknown for:MEDICAL HX UNKNOWN Have you (or family members/close friends) recently traveled outside the [place]? N If Yes, where/when: Have you had exposure to infectious disease within the past month? TB? Other? Specify: c/o roger ear pressure starting Wednesday. Progressed to popping, then sore throat w/ PND and now coughing. No SOA or wheezing. No known fevers. Hasn't taken or tried anything for symptoms. Mom with same symptoms. Denies ear drainage or change in hearing. Source patient Exam Limitations no limitations ALLERGIES Coded Allergies: No Known Drug Allergies (10/18/16) History Medical History General CAD? No Angina: No [place]: No Hypertension? No Hyperlipidemia? No CHF? No DVT? No PE? No COPD? No Asthma? No Anemia? No GERD? No Gastric ulcers? No GI Bleed? No Hernia? Yes Thyroid Problems? No Hypothyroidism? No CVA? No Seizures? No Diabetes? No Insulin Dependent: No Insulin Pump: No Home FSBS? No Renal Insuffiency? No UTI? No Stones? No BPH? No GB Disease: No Nephritic Syndrome? No Asplenia? No Hepatitis? No Sickle Cell Disease? No Arthritis? No Migraines? No Cataracts? No Glaucoma? No MRSA? No HIV? No TB? No Anxiety? No Depression? No Cancer? No More? Yes Additional hx: HISTORY OF SPINA BIFIDA Immunization HX DT/Tetanus 1-4 YRS Flu NEVER Pneumonia NEVER Surgical Hx Previous Surgery?Y HERNIA REPAIR BOWEL SURGERY CYST REMOVED FROM LT OVAR Family History Family HX Diabetes No CAD No Hypertension No Hyperlipidemia No Cancer No TB No Social History Smoking Hx Smoker: Never Smoker Tobacco: No Alcohol Alcohol: No Review of Systems All Other Systems Reviewed and Negative Constitutional see HPI, denies malaise Eyes denies drainage ENT see HPI, nose discharge, throat pain (in the mornings). denies: throat swelling. Respiratory see HPI Gastrointestinal denies no symptoms reported Skin denies rash Psychiatric/Neurological denies headache Physical Exam Vital Signs Vital Signs Date Time Temp Pulse Resp B/P Pulse O2 O2 Flow FiO2 Ox Delivery Rate 06/07 1521 97.9 111 20 140/81 98 06/07 1439 97.9 111 20 140/81 98 General Appearance normal appearance, no apparent distress Eye Exam - bilateral eye normal exam Ear, Nose, Throat roger EACs normal, roger TMs w/ clear fluid bubbles present, clear rhinorrhea, normal pharynx Neck non-tender, supple Respiratory Status No: respiratory distress, productive cough, non productive cough. Lung Sounds anterior: lungs clear. posterior: lungs clear. bilateral: lungs clear. Cardiovascular no peripheral edema, no murmur, tachycardia Neurologic alert, oriented x 3 Mental status normal mood/affect Skin normal color, warm/dry Lymphatic no adenopathy Medical Decision Making LABS/Meds/Orders Pt receiving controlled substance in ED? No Departure Departure Time of Disposition 1519 Disposition DC Home or Self Care(routine) Clinical Impression Primary Impression: Upper respiratory virus Condition STABLE Referrals NO REFERRAL Follow up with primary care or return to [facility] IMM[facility]ATELY for new or worsening symptoms OR no noticeable improvement over the next 48-72 hours. 911 for difficulty breathing or swallowing. Patient Instructions DI for Viral Upper Respiratory Infection -- Adult Additional Instructions * No sign of bacterial infection. Likely viral. Virus can take 7-14 days to run their course * Monitor Temp. FU if fever develops * Encourage fluids, water, gatorade, powerade, pedialyte if /toddler/child * warm salt water gargles * warm fluids * sore throat lozenges * sleep elevated * humidifier/vaporizer * flonase 2 sprays each nostril daily but may take 2-3 days to notice improvement with it. * Bromfed may cause drowsiness. Know how it effects you (or your child) before driving, caring for small children, or sending your child to school. No other antihistamines/allergy medications while taking bromfed. Discharge Counseling Counseled pt/family regarding diagnosis, medications/RX, home care, follow up needs Prescriptions Current Visit Scripts Fluticasone Propionate (Flonase 50 Mcg Nasal [place]) 2 SPRAY NA DAILY #1 BOT D-METHORPHAN HB/P-EPD HCL/BPM (Bromfed Dm Cough Syrup) 10 ML PO QIDP PRN cough #240 ML at 1526
[2017-06-07 15:21] VITALS: BP 140/81
[2017-06-07] MEDS ORDERED: BROMFED DM COU118 ML PO (15:21)
[2017-06-07] MEDS ORDERED: FLONASE 50 MCG16 GM (15:21)
== END 2017-06-07 15:22 | disposition home or self-care (01) ==
LOC: UTC 14:13
DX: J06.9 Acute upper respiratory infection, unspecified (principal); Q05.9 Spina bifida, unspecified

== ENCOUNTER 2017-07-28 19:39 | Emergency (ER) | payer SELFPAY ==
[~2017-07-28] VITALS: Ht 157.5 cm; Wt 76.7 kg
[~2017-07-28 19:39] MED LIST changes: +BROMFED DM COU118 ML PO; +FLONASE 50 MCG16 GM
--- OUTSIDE RECORDS SUMMARY | 2017-07-28 19:52 | External Medical Summary Rpt | CCD ---
Author Author , [facility] Organization [facility] Address Unknown Phone Care Team Providers Care String Studies Director Name Role Phone MARCIN DOTSON Unavailable Unavailable ELSA WITT Unavailable Unavailable JIMI LANE, Unavailable Unavailable [facility], Unavailable [facility] Unavailable Unavailable [place], [facility] JUDSON DOTYU, Unavailable Unavailable RIANNA PERDOMO, Unavailable Unavailable RIANNA ROPER MD, Unavailable Unavailable JUNE SCHMITT MD [facility] Unavailable Unavailable [facility], [facility] CORINA FERRARI, Unavailable Unavailable CORINA FERRARI MICHAEL S, Unavailable Unavailable WEN SAVAGE [facility] Unavailable [facility], [facility] Unavailable Unavailable INC, [facility] SUAREZ STERLING, SUAREZ STERLING Unavailable Unavailable [facility], Unavailable Unavailable [facility] Un[facility] Unavailable [facility], [facility] Unavailable Unavailable SERVICES, [facility] Gia SANTOS, Unavailable Unavailable [facility], Unavailable Unavailable PLL[facility], [facility] Unavailable Unavailable LAB, [facility] Unavailable Unavailable LAB, [id number], Unavailable Unavailable [id number] LULA POLANCO SMALL, Unavailable Unavailable LULA Jolly STRAWZELL CRI, Unavailable Unavailable STRAW[facility] Unavailable Unavailable #[id number], [facility] # Unavailable Unavailable [id number], [facility] # [id number] [facility] Unavailable Unavailable OF FRANCES, [facility] Purpose Continuity of Care Document - 11-28-2007 through 2016 Problems Code Diagnosis DOS Provider Status J069 ACUTE UPPER 06-07-2017 [facility] RESPIRATORY INC INFECTION UNSPECIFIED Q059 SPINA 06-07-2017 [facility] UNSPECIFIED INC Z3040 ENCOUNTER 02-04-2017 [facility] SURVEILLANC GROUP E CONTRACEPTI VES UNS Z3009 ENCOUNTER 11-18-2016 [facility] OT GENERAL PHYSICIANS GROUP JUNIOR MARKETING ASSOCIATE&ADV ICE CONTRACEPT R112 NAUSEA WITH 10-20-2016 [facility]ANS, UNSPECIFIED [facility] R1033 PERIUMBILIC 08-07-2016 [facility] AL PAIN PHYSICIANS, [facility] Z3046 ENCOUNTER 07-09-2016 [facility] SURVEILLANC PHYSICIANS E IMPL GROUP SUBDERMAL CONTRACEPT 6264 IRREGULAR 12-25-2014 [facility] MENSTRUAL PHYSICIANS CYCLE GROUP 70347 OTHER SIGN 11-23-2014 [place] [facility]ICAL IN BREAST IMAGING ASS 6116 GALACTORRHE 11-20-2014 [facility] A NOT PHYSICIANS ASSOCIATED GROUP WITH [place] 12800 OTHER 11-20-2014 [facility] ABNORMAL PHYSICIANS FINDING GROUP RADIOLOGICA L EXAM BREAST 30398 UNSPECIFIED 11-22-2013 SUAREZ [place]ERL[place] [address] UNSPECIFIED 11-19-2013 [facility] CONJUNCTIVI INC TIS 56982 UNSPECIFIED 11-19-2013 [facility] BRO CONJUNCTIVI TIS 47643 ORBITAL 11-19-2013 [facility] BRO CELLULITIS 18552 PAIN IN OR 11-19-2013 JU[facility] AROUND EYE DUNCAN 6820 CELLULITIS 11-19-2013 [facility] AND ABSCESS [facility] OF FACE INC 7823 EDEMA 11-19-2013 JUDSON DUNCAN V2543 SURVEILLANC 07-26-2013 [facility] SPENCER E PREV PRSC IMPL SUBDERMAL CONTRACEPT V692 PROBLEMS 07-26-2013 COMBINED RELATED TO PHYSICIANS HIGH-RISK LA SEXUAL BEHAVIOR V255 INSERTION 07-06-2013 ELSA SPENCER OF IMPLANTABLE SUBDERMAL CONTRACEPTI VE 350.2 350.2 11-29-2012 [facility] ATYPICAL [facility] PAIN [facility] 3502 ATYPICAL 11-29-2012 [facility]IN [facility]ERGENCY SERVICES 9104 FCE 09-19-2012 [facility] NCK&SCLP NO EMERGENCY EYE INSECT SERVICES BITE NONVNOM W/O INF 7241 PAIN IN 09-19-2011 [facility] THORACIC EM[facility]Y SPINE SERVICES 7245 UNSPECIFIED 09-19-2011 JUDSON BACKACHE DUNCAN 5990 URINARY 08-04-2011 STR[facility] TRACT CRI INFECTION SITE NOT SPECIFIED 9194 OTH MX&UNS 05-10-2011 [facility] SITE INSECT EMERGENCY BITE SERVICES NONVENOMOUS W/O INF 462 ACUTE 01-16-2011 STOEN GALLARDO PHARYNGITIS [facility] 9134 ELB 12-15-2010 [facility] INSECT BITE NONVENOMOUS W/O INF 9164 HIP THI 12-15-2010 [facility] LEG&ANK ASSOCIATES INSECT BITE NONVENOMOUS W/O INF V7231 ROUTINE 07-03-2010 [facility] OF EXAMINATION [place]ANCES V745 SCREENING 07-03-2010 PATHOLOGY & EXAMINATION CYTOLOGY FOR LAB VENEREAL DISEASE 1320 PEDICULUS 04-30-2010 [facility] GALLARDO CAPITIS [facility] 220 BENIGN 10-04-2009 [facility]EN'S NEOPLASM OF [facility] [place] 6202 OTHER AND 10-04-2009 PATHOLOGY & UNSPECIFIED CYTOLOGY OVARIAN LAB CYST 6259 UNSPEC 07-26-2009 [facility] CLINIC OF W/FEMALE ETHAN GENITAL [facility] ORGANS 72437 ABDOMINAL 07-26-2009 WOMEN'S PAIN, LEFT HEALTH LOWER [facility] OF [facility] 66990 ABDOMINAL 07-16-2009 [facility] PA[facility], EMERGENCY UNSPECIFIED SERVICES SITE ASSOCIATES 42345 ABDOMINAL 07-16-2009 [facility] PAIN, MEM HOS[facility] GENERALIZED INC 8730 OPEN WOUND 11-02-2008 [facility] SCALP EMERGENCY WITHOUT SERVICES MENTION ASSOCIATES COMPLICATIO N 9190 ABRASION/FR 11-02-2008 [facility] ICION BURN EMERGENCY OTH MX&UNS SERVICES SITE W/O ASSOCIATES INF 920 CONTUSION 11-02-2008 [facility] OF FACE EMERGENCY SCALP AND SERVICES NECK EXCEPT ASSOCIATES EYE E8490 PLACE OF 11-02-2008 [place] OCCURRENCE, MEDICAL HOME IMAGING ASSOCIATES E8859 FALL FROM 11-02-2008 [place] OTHER MEDICAL SLIPPING IMAGING TRIPPING OR ASSOCIATES STUMBLING E8888 OTHER FALL 11-02-2008 [facility] ASSOCIATES V202 ROUTINE 03-19-2008 [facility] INFANT OR ASSOCIATES CHILD HEALTH CHECK 7806 FEVER & OTH 02-04-2008 [facility] PROF SERV [place] [address] UNSPECIFIED 01-24-2008 [place] SITE OF MEDICAL ANKLE IMAGING SPRAIN AND ASSOCIATES STRAIN E9179 OTHER 01-24-2008 [place] STRIKING MEDICAL AGAINST IMAGING W/WO ASSOCIATES SUBSEQUENT FALL H10.9 UNSPECIFIED CONJUNCTIVI TIS J06.9 ACUTE UPPER RESPIRATORY INFECTION, UNSPECIFIED L03.213 PERIORBITAL CELLULITIS M54.9 DORSALGIA, UNSPECIFIED R10.9 UNSPECIFIED ABDOMINAL PAIN R11.10 VOMITING, UNSPECIFIED S39.012A STRAIN OF MUSCLE, FASCIA AND TENDON OF LOWER BACK, INIT Allergies, Adverse Reactions, Alerts Type Allergy to [...] 5- 5- 00 MA 52 ON ve AK 59 20 20 RT 3 D ED [...] 20 AI OP 01 09 09 D WV HE 0 PH CH N- AR AE CO M L D #3 S #3 93 8 TA BL ET 00 11 12 00 21 7 RI 81 GA Ac 14 -2 -0 .0 TE 02 IN ti 39 4- 3- 00 53 EY ve 89 20 20 AI 80 09 09 D WV 1 PH CH AR AE M L [...] e TI M ON #3 93 8 Vital Signs 11-29-2012 17:25 Name Value Interpretat [...] Procedures Procedure DOS Code Location Performer Comment [facility] 6525 STONE ROWLEYON LAPAROSCO 0 [facility] PIC LOCAL INC INC EXCISION/ DESTRUC OVARY APPLICATI 9977 STONERANI RITTER ON/ADMIN 0 [facility] ADHESION INC INC BARRIER SUBSTANCE S SIMPLE 41783 ANGELICA FERRARI, REPAIR 9 EMERGENCY [place] P SCALP/NEC SERVICES K/AX/BIRDIE T/TRUNK ASSOCIATE 2.5CM/< [place] [address] [facility] JUDSON, HEAD/BRAI 9 MEDICAL RIANNA N W/[place] [address] [facility], MAXILLOFA 9 MEDICAL RIANNA CIAL W/O IMAGING CONTRAST ASSOCIATE MATERIAL S 3D 68187 [facility] JUDS[facility], RENDERING 9 MEDICAL RIANNA W/INTERP IMAGING & [place]OCI[place] 3D [address] [facility] JUDSON, RENDERING 9 MEDICAL RIANNA IMAGING W/INTERP& ASSOCIATE POSTPROC S DIFF WORK STATION CLOSURE 8659 STONE RITTER SKIN&SUBC 9 [facility] UTANEOUS INC INC TISSUE OTHER SITES Encounters Encounter Start End Date Code Location Performer Type Date [facility] STONE - 7 7 [facility] STONE - 5 5 [facility] - 4 4 [facility] 4 4 [facility] Emergency JANY SCHMITT MD (ER) 3 15:15 3 17:31 [facility] STONE - 3 3 [facility] - 3 3 [facility] - 2 2 [facility] - 1 1 [facility] STONE - 0 0 [facility] STONE - 0 0 [facility] STONE - 9 9 [facility] STONE - 9 9 [facility] STONE - 9 9 [facility] 23092 STONE 9 9 [facility] VISIT MODERATE SEVERITY EMERGENCY 77730 ANGELICA FERRARI, DEPT 9 9 EMERGENCY [place] Tucker VISIT SERVICES HIGH SEVERITY& ASSOCIATE THREAT S [facility] STONE - 8 8 [facility] STONE - 8 8 [facility]
--- OUTSIDE RECORDS SUMMARY | 2017-07-28 19:52 | External Medical Summary Rpt | CCD ---
Author Author , KY[facility] Organization [facility] Address Unknown Phone Care Team Providers Care Systems Software Developer Name Role Phone MARCIN DOTSON Unavailable Unavailable [...] FERRARI MICHAEL S, Unavailable Unavailable WEN SAVAGE [facility] Unavailable [facility], [facility] Unavailable Unavailable INC, [facility] SUAREZ STERLING, SUAREZ STERLING Unavailable Unavailable [facility], Unavailable Unavailable [facility] Unavailable Unavailable [facility], [facility] Unavailable Unavailable SERVICES, [facility] Gia SANTOS, Unavailable Unavailable Gia [...] PHARMACY #[id number] # Unavailable Unavailable [id number], [facility] # [id number] [facility] Unavailable Unavailable OF [facility]ANC[facility], [facility] Purpose Continuity of Care Document - 11-28-2007 through 2016 Problems Code Diagnosis DOS Provider Status J069 ACUTE UPPER 06-07-2017 [facility] RESPIRATORY INC INFECTION UNSPECIFIED Q059 SPINA 06-07-2017 [facility] UNSPECIFIED INC Z3040 ENCOUNTER 02-04-2017 [facility] FOR PHYS[facility]IANS SURVEILLANC GROUP E CONTRACEPTI VES UNS Z3009 ENCOUNTER 11-18-2016 [facility] OT GENERAL PHYSICIANS GROUP 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 R112 NAUSEA WITH 10-20-2016 [facility] VOMITING PHYSICIANS, UNSPECIFIED [facility] R1033 PERIUMBILIC 08-07-2016 LJ AL PAIN PHYSICIANS, [facility] Z3046 ENCOUNTER 07-09-2016 [facility] SURVEILLANC PHYSICIANS E IMPL GROUP SUBDERMAL CONTRACEPT 6264 IRREGULAR 12-25-2014 [facility] MENSTRUAL PHYSICIANS CYCLE GROUP 89758 OTHER SIGN 11-23-2014 [place] [facility]ICAL IN BREAST IMAGING ASS 6116 GALACTORRHE 11-20-2014 [facility] A NOT PHYSICIANS ASSOCIATED GROUP WITH [place] 07488 OTHER 11-20-2014 [facility] ABNORMAL PHYSICIANS FINDING GROUP RADIOLOGICA L EXAM BREAST 71114 UNSPECIFIED 11-22-2013 SUAREZ [place]ER[place] [address] UNSPECIFIED 11-19-2013 [facility] CONJUNCTIVI INC TIS 58858 UNSPECIFIED 11-19-2013 [facility] CONJUNCTIVI TIS 63849 ORBITAL 11-19-2013 [facility] CELLULITIS 73460 PAIN IN [place] 11-19-2013 [facility] AROUND EYE [facility] 6820 CELLULITIS 11-19-2013 [facility] AND ABSCESS [facility] OF FACE INC 7823 EDEMA 11-19-2013 JUDSON [place] V2543 SURVEILLANC 07-26-2013 HUNTER SPENCER E PREV PRSC IMPL SUBDERMAL CONTRACEPT V692 PROBLEMS 07-26-2013 COMBINED RELATED TO PHYSICIANS HIGH-RISK LA SEXUAL BEHAVIOR V255 INSERTION 07-06-2013 ELSA SPENCER OF IMPLANTABLE SUBDERMAL CONTRACEPTI VE 350.2 350.2 11-29-2012 [facility] ATYPICAL [facility] PAIN [facility] 3502 ATYPICAL 11-29-2012 [facility]IN EMERGENCY SERVICES 9104 FCE 09-19-2012 [facility] NCK&SCL[facility] NO EMERGENCY EYE INSECT SERVICES BITE NONVNOM W/O INF 7241 PAIN IN 09-19-2011 [facility] THORACIC EMERGENCY SPINE SERVICES 7245 UNSPECIFIED 09-19-2011 J[facility] BACKACHE [facility] 5990 URINARY 08-04-2011 [facility] TRACT CRI INFECTION SITE NOT SPECIFIED 9194 OTH MX&UNS 05-10-2011 [place] SITE INSECT EMERGENCY BITE SERVICES NONVENOMOUS W/O INF 462 ACUTE 01-16-2011 ST[facility] GALLARDO PHARYNGITIS [facility] 9134 ELB 12-15-2010 [facility] INSECT BITE NONVENOMOUS W/O INF 9164 HIP THI 12-15-2010 [facility] LEG&ANK [facility]OC[facility] INSECT BITE NONVENOMOUS W/O INF V7231 ROUTINE 07-03-2010 [facility] AL CLINIC OF EXAMINATION [place]ANCES V745 SCREENING 07-03-2010 PATHOLOGY & EXAMINATION CYTOLOGY FOR LAB VENEREAL DISEASE 1320 PEDICULUS 04-30-2010 ST[facility] GALLARDO CAPITIS [facility] 220 BENIGN 10-04-2009 WOMEN'S NEOPLASM OF [facility] 6202 OTHER AND 10-04-2009 PATHOLOGY & UNSPECIFIED CYTOLOGY OVARIAN LAB CYST 6259 UNSPEC 07-26-2009 [facility] CLINIC OF W/FEMALE [place] GENITAL [facility] ORGANS 77437 ABDOMINAL 07-26-2009 WOMEN'S PAIN, LEFT [facility] 26302 ABDOMINAL 07-16-2009 [place] [facility], EMERGENCY UNSPECIFIED SERVICES SITE ASSOCIATES 27147 ABDOMINAL 07-16-2009 [facility] PAIN, MEM HOSP GENERALIZED INC 8730 OPEN WOUND 11-02-2008 [place] SCALP EMERGENCY WITHOUT SERVICES MENTION ASSOCIATES COMPLICATIO N 9190 ABRASION/FR 11-02-2008 [place] ICION BURN EMERGENCY OTH MX&UNS SERVICES SITE W/O ASSOCIATES INF 920 CONTUSION 11-02-2008 [place] OF FACE EMERGENCY SCALP AND SERVICES NECK EXCEPT ASSOCIATES EYE E8490 PLACE OF 11-02-2008 [place] OCCURRENCE, MEDICAL HOME IMAGING ASSOCIATES E8859 FALL FROM 11-02-2008 [place] OTHER MEDICAL SLIPPING IMAGING TRIPPING OR ASSOCIATES STUMBLING E8888 OTHER FALL 11-02-2008 [facility] ASSOCIATES V202 ROUTINE 03-19-2008 [facility] INFANT OR ASSOCIATES CHILD HEALTH CHECK 7806 FEVER & OTH 02-04-2008 [facility] PROF SERV [place] [address] UNSPECIFIED 01-24-2008 [place] SITE OF MEDICAL ANKLE IMAGING SPRAIN AND ASSOCIATES STRAIN E9179 OTHER 01-24-2008 [place] STRIKING MEDICAL AGAINST IMAGING W/WO ASSOCIATES SUBSEQUENT [...] 5- 5- 00 MA 52 ON ve PA 59 20 20 RT 3 D ED [...] Procedures Procedure DOS Code Location Performer Comment [facility] 6525 STONE ROWLEYON LAPAROSCO 0 [facility] PIC LOCAL INC INC EXCISION/ DESTRUC OVARY APPLICATI 9977 STONERANI RITTER ON/ADMIN 0 MEM H[facility] ADHESION INC INC BARRIER SUBSTANCE S SIMPLE 98305 ANGELICA FERRARI, REPAIR 9 EMERGENCY [place] P SCALP/NEC SERVICES K/AX/BIRDIE T/TRUNK ASSOCIATE 2.5CM/< [place] [address] [facility] JUDSON, HEAD/BRAI 9 MEDICAL RIANNA N W/[place] [address] [facility], MAXILLOFA 9 MEDICAL RIANNA CIAL W/O IMAGING CONTRAST ASSOCIATE MATERIAL S 3D 30486 [facility], RENDERING 9 MEDICAL RIANNA W/INTERP IMAGING & ASSOCI[place] 3D [address] [facility] JUDSON, RENDERING 9 MEDICAL RIANNA IMAGING W/INTERP& ASSOCIATE POSTPROC S DIFF WORK STATION CLOSURE 8659 STONE RITTER SKIN&SUBC 9 [facility] UTANEOUS INC INC TISSUE OTHER SITES Encounters Encounter Start End Date Code Location Performer Type Date [facility] STONE - 7 7 MEM HOS[facility] OUTPATIEN [facility] STONE - 5 5 [facility] OUTPATIEN [facility] STONE - 4 4 [facility]IEN [facility] STONE - 4 4 [facility] OUTPATIEN REPLACED BY [facility] Emergency JANY SCHMITT MD (ER) 3 15:15 3 17:31 [facility] STONE - 3 3 [facility] OUTPATIEN [facility] STONE - 3 3 [facility] STONE - 2 2 [facility] STONE - 1 1 [facility] STONE - 0 0 [facility] STONE - 0 0 [facility] STONE - 9 9 [facility] STONE - 9 9 [facility] STONE - 9 9 [facility] 51834 STONE 9 9 [facility] VISIT MODERATE SEVERITY EMERGENCY 51513 ANGELICA FERRARI, DEPT 9 9 EMERGENCY [place] Tucker VISIT SERVICES HIGH SEVERITY& ASSOCIATE THREAT S [facility] STONE - 8 8 MEM [facility] STONE - 8 8 [facility]
--- OUTSIDE RECORDS SUMMARY | 2017-07-28 19:53 | External Medical Summary Rpt | CCD ---
Author Author , KYAW Woody KYAW Address Unknown Phone [email or web address] Care Team Providers Care Preparation Center Coordinator Name Role Phone MARCIN SAHA, MARCIN Unavailable Unavailable ELSA WITT Unavailable Unavailable JIMI LANE, Unavailable Unavailable [facility], Un[facility] Unavailable Unavailable [place], [facility] JUDSON DUNCAN, Unavailable Unavailable JUDSON DUNCAN RIANNA ROPER, Unavailable Unavailable [facility] Unavailable Unavailable [facility], [facility] CORINA FERRARI, Unavailable Unavailable [facility] FERRARI MICHAEL S, Unavailable Unavailable [facility] Unavailable Un[facility] Unavailable Unavailable INC, [facility] SUAREZ STERLING, SUAREZ STERLING Unavailable Unavailable [facility], Unavailable Unavailable [facility] Un[facility]available [facility], [facility] Unavailable Unavailable SERVICES, [facility] Gia SANTOS, Unavailable Unavailable [facility], Unavailable Unavailable PLL[facility], [facility] Unavailable Unavailable LAB, [facility] Unavailable Unavailable LAB, [facility] LAB [id number], Unavailable Unavailable [id number] LULA POLANCO SMALL, Unavailable Unavailable LULA Jolly STRAWZELL CRI, Unavailable Unavailable STRAWZELL CRI [facility] Unavailable Unavailable #591, [facility] # Unavailable Unavailable [id number], [facility] # [id number] [facility] Unavailable Unavailable OF [place], [facility] [place] Purpose Continuity of Care Document - 11-28-2007 through 2016 Problems Code Diagnosis DOS Provider Status J069 ACUTE UPPER 06-07-2017 [facility] INFECTION UNSPECIFIED Q059 SPINA 06-07-2017 [facility] UNSPECIFIED INC Z3040 ENCOUNTER 02-04-2017 [facility] GROUP E CONTRACEPTI VES UNS Z3009 ENCOUNTER 11-18-2016 [facility] OT GENERAL PHYSICIANS GROUP CIGARETTE VENDOR&ADV ICE CONTRACEPT R112 NAUSEA WITH 10-20-2016 [facility], UNSPECIFIED [facility] R1033 PERIUMBILIC 08-07-2016 [facility] AZEVEDO PAIN PHYSICIANS, [facility] Z3046 ENCOUNTER 07-09-2016 [facility] PHYSICIANS E IMPL GROUP SUBDERMAL CONTRACEPT 6264 IRREGULAR 12-25-2014 [facility] MENSTRUAL PHYSICIANS CYCLE GROUP 78367 OTHER SIGN 11-23-2014 [place] [facility] IN BREAST [facility]ING ASS 6116 GALACTORRHE 11-20-2014 [facility] A NOT PHYSICIANS ASSOCIATED GROUP WITH [place]IL[place]TH 15183 OTHER 11-20-2014 [facility] ABNORMAL PHYSICIANS FINDING GROUP RADIOLOGICA L EXAM BREAST 59602 UNSPECIFIED 11-22-2013 ERICK [place] [address] UNSPECIFIED 11-19-2013 [facility] CONJUNCTIVI INC TIS 10241 UNSPECIFIED 11-19-2013 [facility] BRO CONJUNCTIVI TIS 79683 ORBITAL 11-19-2013 MARCIN SAHA CELLULITIS 45663 PAIN IN [place] 11-19-2013 JUDSON AROUND EYE DUNCAN 6820 CELLULITIS 11-19-2013 [facility] OF FACE INC 7823 EDEMA 11-19-2013 JUDSON DUNCAN V2543 SURVEILLANC 07-26-2013 ELSA SPENCER E PREV PRSC IMPL SUBDERMAL CONTRACEPT V692 PROBLEMS 07-26-2013 [facility] RELATED TO PHYSICIANS HIGH-RISK LA SEXUAL BEHAVIOR V255 INSERTION 07-06-2013 ELSA SPENCER OF IMPLANTABLE SUBDERMAL CONTRACEPTI VE 3502 ATYPICAL 11-29-2012 [facility] 9104 FCE 09-19-2012 [facility] NCK&SCLP NO EMERGENCY EYE INSECT SERVICES BITE NONVNOM W/O INF 7241 PAIN IN 09-19-2011 [facility] THORACIC EMERG[facility]Y SPINE SERVICES 7245 UNSPECIFIED 09-19-2011 JUDSON BACKACHE DUNCAN 5990 URINARY 08-04-2011 STR[facility] TRACT CRI INFECTION SITE NOT SPECIFIED 9194 OTH MX&UNS 05-10-2011 [facility] SITE INSECT EMERGENCY BITE SERVICES NONVENOMOUS W/O INF 462 ACUTE 01-16-2011 [facility] 9134 ELB 12-15-2010 [facility] INSECT BITE NONVENOMOUS W/O INF 9164 HIP THI 12-15-2010 [facility] CARE LEG&ANK ASSOCIATES INSECT BITE NONVENOMOUS W/O INF V7231 ROUTINE 07-03-2010 [facility] OF EXAMINATION [place] V745 SCREENING 07-03-2010 PATHOLOGY & EXAMINATION CYTOLOGY FOR LAB VENEREAL DISEASE 1320 PEDICULUS 04-30-2010 [facility] [place] [facility] [employer] 220 BENIGN 10-04-2009 [facility] NEOPLASM OF HEALTH OVARY [facility] [place] [facility] 6202 OTHER AND 10-04-2009 PATHOLOGY & UNSPECIFIED CYTOLOGY OVARIAN LAB CYST 6259 UNSPEC 07-26-2009 [facility] CLINIC OF W/FEMALE [place] GENITAL [facility] ORGANS 91917 ABDOMINAL 07-26-2009 [facility]'S PAIN, LEFT HEALTH LOWER CLINIC OF QUADRANT [place] [facility] 30870 ABDOMINAL 07-16-2009 [facility], EMERGENCY UNSPECIFIED SERVICES SITE ASSOCIATES 62002 ABDOMINAL 07-16-2009 [facility] GENERALIZED INC 8730 OPEN WOUND 11-02-2008 [facility] SCALP EMERGENCY WITHOUT SERVICES MENTION ASSOCIATES COMPLICATIO N 9190 ABRASION/FR 11-02-2008 [facility] ICION BURN EMERGENCY OTH MX&UNS SERVICES SITE W/O ASSOCIATES INF 920 CONTUSION 11-02-2008 [facility] OF FACE EMERGENCY SCALP AND SERVICES NECK EXCEPT ASSOCIATES EYE E8490 PLACE OF 11-02-2008 [facility]ICAL HOME IMAGING ASSOCIATES E8859 FALL FROM 11-02-2008 [facility] OTHER MEDICAL SLIPPING IMAGING TRIPPING OR ASSOCIATES STUMBLING E8888 OTHER FALL 11-02-2008 [facility]ATES V202 ROUTINE 03-19-2008 [facility] OR [facility]OCIATES CHILD HEALTH CHECK 7806 FEVER & OTH 02-04-2008 [facility] PROF SERV DISTURBANCE [place] REG 34659 UNSPECIFIED 01-24-2008 [place] SITE OF MEDICAL ANKLE IMAGING SPRAIN AND ASSOCIATES STRAIN E9179 OTHER 01-24-2008 [place] STRIKING MEDICAL AGAINST IMAGING W/WO ASSOCIATES SUBSEQUENT [...] 5- 5- 00 MA 52 ON ve MO 59 20 20 RT 3 D ED [...] 20 AI OP 01 09 09 D TX HE 0 PH CH N- AR AE CO M L D #3 S #3 93 8 TA BL ET 00 11 12 00 21 7 RI 81 GA Ac 14 -2 -0 .0 TE 02 IN ti 39 4- 3- 00 53 EY ve 89 20 20 AI 80 09 09 D TX 1 PH CH AR AE M L [...] e TI M ON #3 93 8 Procedures Procedure DOS Code Location Performer Comment [facility] 6519 [facility] RITTER LAPAROSCO 0 [facility] PIC LOCAL INC INC EXCISION/ DESTRUC OVARY APPLICATI 9977 [facility] RITTER ON/ADMIN 0 [facility] ADHESION INC INC BARRIER SUBSTANCE S SIMPLE 48820 ANGELICA FERRARI, REPAIR 9 EMERGENCY [place] P SCALP/NEC SERVICES K/AX/BIRDIE T/TRUNK ASSOCIATE 2.5CM/< [place] [address] KULWANT DUNCANUTCHER, HEAD/BRAI 9 MEDICAL RIANNA N W/O [place]AGING [place] [address] [facility] JUDS[facility], MAXILLOFA 9 MEDICAL RIANNA CIAL W/O IMAGING CONTRAST ASSOCIATE MATERIAL S 3D 58829 KULWANT ROPER, RENDERING 9 MEDICAL RIANNA W/INTERP IMAGING & ASSOCI[place] 3D [address] KULWANT DUNCANUTCHER, RENDERING 9 MEDICAL RIANNA IMAGING W/INTERP& ASSOCIATE POSTPROC S DIFF WORK STATION CLOSURE 8659 STONE RITTER SKIN&SUBC 9 [facility] UTANEOUS INC INC TISSUE OTHER SITES Encounters Encounter Start End Date Code Location Performer Type Date [facility] - 7 7 [facility] OUTPATIEN [facility] ST[facility] - 5 5 [facility] ST[facility] - 4 4 [facility] OUTPAT[facility] STONE - 4 4 [facility] OUTPATI[facility] STONE - 3 3 [facility] OUTPATI[facility]ONE - 3 3 [facility] OUTPATIEN [facility] STONE - 2 2 [facility] OUTPATI[facility] - 1 1 [facility] OUTPATI[facility] STONE - 0 0 [facility]PAT[facility] - 0 0 [facility] OUTPATIEN [facility]ONE - 9 9 [facility] OUTPAT[facility]EN [facility] - 9 9 [facility] OUTPATIEN [facility] EMERGENCY 61770 ANGELICA FERRARI, DEPT 9 9 EMERGENCY [place] VISIT SERVICES HIGH SEVERITY& ASSOCIATE THREAT S FUN EMERGENCY 65271 STONE 9 9 [facility] VISIT MODERATE SEVERITY HOSPITAL STONE - 9 9 [facility] OUTPATIEN [facility] - 8 8 [facility] OUTPATIEN [facility] - 8 8 [facility] OUTPATIEN [facility]
--- OUTSIDE RECORDS SUMMARY | 2017-07-28 19:53 | External Medical Summary Rpt | CCD ---
Author Author , KYAW Woody KYAW Address Unknown Phone [email or web address] Care Team Providers Care Grinder Set Up Operator Name Role Phone MARCIN SAHA, MARCIN Unavailable [...] MICHAEL S, Unavailable Unavailable [facility] Unavailable Unavailable [facility], [facility] Unavailable Unavailable INC, [facility] SUAREZ STERLING, SUAREZ STERLING Unavailable Unavailable [facility], Unavailable Unavailable [facility] Unavailable Unavailable [facility]ING [facility], [facility] Unavailable Unavailable SERVICES, [facility] Gia SANTOS, Unavailable Unavailable [facility], Unavailable Unavailable PLLC, [facility] Unavailable Unavailable LAB, PATHOLOGY & CYTOLOGY LAB [facility] Unavailable Unavailable LAB, PATHOLOGY & CYTOLOGY LAB [id number], Unavailable Unavailable [id number] LULA POLANCO SMALL, Unavailable Unavailable LULA Jolly STRAWZELL CRI, Unavailable Unavailable STRAWZELL CRI [facility] Unavailable Unavailable #591, [facility] # Unavailable Unavailable [id number], [facility] # [id number] [facility] Unavailable Unavailable OF [place], [facility] [place] Purpose Continuity of Care Document - 11-28-2007 through 2016 Problems Code Diagnosis DOS Provider Status J069 ACUTE UPPER 06-07-2017 [facility] INFECTION UNSPECIFIED Q059 SPINA 06-07-2017 [facility] UNSPECIFIED INC Z3040 ENCOUNTER 02-04-2017 [facility] SURVEILLANC GROUP E CONTRACEPTI VES UNS Z3009 ENCOUNTER 11-18-2016 [place] [facility] GENERAL PHYSICIANS GROUP TOLL BRIDGE ATTENDANT&ADV ICE CONTRACEPT R112 NAUSEA WITH 10-20-2016 [facility], UNSPECIFIED [facility] R1033 PERIUMBILIC 08-07-2016 [facility]J AZEVEDO PAIN PHYSICIANS, [facility] Z3046 ENCOUNTER 07-09-2016 [place] SURVE[facility]ANC PHYSICIANS E IMPL GROUP SUBDERMAL CONTRACEPT 6264 IRREGULAR 12-25-2014 [facility] MENSTRUAL [facility]YS[facility]IANS CYCLE GROUP 76523 OTHER SIGN 11-23-2014 [place] [facility] IN BREAST IMAGING ASS 6116 GALACTORRHE 11-20-2014 [place] A NOT PHYSICIANS ASSOCIATED GROUP WITH [place] 30080 OTHER 11-20-2014 [place] ABNORMAL PHYSICIANS FINDING GROUP RADIOLOGICA L EXAM BREAST 00711 UNSPECIFIED 11-22-2013 ERICK K[place] [address] UNSPECIFIED 11-19-2013 [facility] CONJUNCTIVI INC TIS 78876 UNSPECIFIED 11-19-2013 [facility] BRO CONJUNCTIVI TIS 36987 ORBITAL 11-19-2013 MARCIN SAHA CELLULITIS 26896 PAIN IN [place] 11-19-2013 [facility] AROUND EYE DUNCAN 6820 CELLULITIS 11-19-2013 [facility] OF FACE INC 7823 EDEMA 11-19-2013 JUDSON DUNCAN V2543 SURVEILLANC 07-26-2013 ELSA SPENCER E PREV PRSC IMPL SUBDERMAL CONTRACEPT V692 PROBLEMS 07-26-2013 [facility] RELATED TO PHYSICIANS HIGH-RISK LA SEXUAL BEHAVIOR V255 INSERTION 07-06-2013 ELSA SPENCER OF IMPLANTABLE SUBDERMAL CONTRACEPTI VE 3502 ATYPICAL 11-29-2012 [facility] 9104 FCE 09-19-2012 [facility] NCK&SCLP NO EMERGENCY EYE INSECT SERVICES BITE NONVNOM W/O INF 7241 PAIN IN 09-19-2011 [facility] THORACIC EMERG[facility]Y SPINE SERVICES 7245 UNSPECIFIED 09-19-2011 JUDSON BACKACHE DUNCAN 5990 URINARY 08-04-2011 [facility] TRACT CRI INFECTION SITE NOT SPECIFIED 9194 OTH MX&UNS 05-10-2011 [facility] SITE INSECT EMERGENCY BITE SERVICES NONVENOMOUS W/O INF 462 ACUTE 01-16-2011 [facility] 9134 ELB 12-15-2010 [facility] INSECT BITE NONVENOMOUS W/O INF 9164 HIP THI 12-15-2010 [facility] CARE LEG&ANK ASSOCIATES INSECT BITE NONVENOMOUS W/O INF V7231 ROUTINE 07-03-2010 [facility] GYNEC[facility]IC [facility] AL CLINIC OF EXAMINATION [place] V745 SCREENING 07-03-2010 PATHOLOGY & EXAMINATION CYTOLOGY FOR LAB VENEREAL DISEASE 1320 PEDICULUS 04-30-2010 [facility] [place] [facility] 220 BENIGN 10-04-2009 W[facility]EN'S NEOPLASM OF HEALTH OVARY CLINIC OF [facility] 6202 OTHER AND 10-04-2009 PATHOLOGY & UNSPECIFIED CYTOLOGY OVARIAN LAB CYST 6259 UNSPEC 07-26-2009 [facility] CLINIC OF W/FEMALE [place] GENITAL [facility] ORGANS 92873 ABDOMINAL 07-26-2009 WOMEN'S PAIN, LEFT HEALTH LOWER CLINIC OF QUADRANT [place] [facility] 85593 ABDOMINAL 07-16-2009 [facility], EMERGENCY UNSPECIFIED SERVICES SITE ASSOCIATES 32776 ABDOMINAL 07-16-2009 [facility], [facility] GENERALIZED INC 8730 OPEN WOUND 11-02-2008 [facility] SCALP EMERGENCY WITHOUT SERVICES MENTION ASSOCIATES COMPLICATIO N 9190 ABRASION/FR 11-02-2008 [facility] ICION BURN EMERGENCY OTH MX&UNS SERVICES SITE W/O ASSOCIATES INF 920 CONTUSION 11-02-2008 [facility] OF FACE EMERGENCY SCALP AND SERVICES NECK EXCEPT ASSOCIATES EYE E8490 PLACE OF 11-02-2008 [facility] IMAGING ASSOCIATES E8859 FALL FROM 11-02-2008 [facility] OTHER MEDICAL SLIPPING IMAGING TRIPPING OR ASSOCIATES STUMBLING E8888 OTHER FALL 11-02-2008 [facility] ASS[facility]IATES V202 ROUTINE 03-19-2008 [facility] CHILD HEALTH CHECK 7806 FEVER & OTH 02-04-2008 [facility] PROF SERV DISTURBANCE S TEMP REG 55393 UNSPECIFIED 01-24-2008 [facility] SITE OF MEDICAL ANKLE IMAGING SPRAIN AND ASSOCIATES STRAIN E9179 OTHER 01-24-2008 [facility] STRIKING MEDICAL AGAINST IMAGING W/WO ASSOCIATES SUBSEQUENT [...] 5- 5- 00 MA 52 ON ve SC 59 20 20 RT 3 D ED [...] 20 AI OP 01 09 09 D NM HE 0 PH CH N- AR AE CO M L D #3 S #3 93 8 TA BL ET 00 11 12 00 21 7 RI 81 GA Ac 14 -2 -0 .0 TE 02 IN ti 39 4- 3- 00 53 EY ve 89 20 20 AI 80 09 09 D NM 1 PH CH AR AE M L [...] Procedures Procedure DOS Code Location Performer Comment [facility] 6569 [facility] RITTER LAPAROSCO 0 [facility] PIC LOCAL INC INC EXCISION/ DESTRUC OVARY APPLICATI 9977 [facility] RITTER ON/ADMIN 0 [facility] ADHESION INC INC BARRIER SUBSTANCE S SIMPLE 62692 ANGELICA FERRARI, REPAIR 9 EMERGENCY [place] P SCALP/NEC SERVICES K/AX/BIRDIE T/TRUNK ASSOCIATE 2.5CM/< [place] [address] KULWANT DUNCANUTCHER, HEAD/BRAI 9 MEDICAL RIANNA N W/O [place] [address] [facility] LANIERRonny JUDSON, MAXILLOFA 9 MEDICAL RIANNA CIAL W/O IMAGING CONTRAST ASSOCIATE MATERIAL S 3D 38679 KULWANT ROPER, RENDERING 9 MEDICAL RIANNA W/INTERP IMAGING & ASSOCI[place] 3D [address] KULWANT DUNCANUTCHER, RENDERING 9 MEDICAL [facility]IAN[facility] IMAGING W/INTERP& ASSOCIATE POSTPROC S DIFF WORK STATION CLOSURE 8659 [facility] RITTER SKIN&SUBC 9 [facility] UTANEOUS INC INC TISSUE OTHER SITES Encounters Encounter Start End Date Code Location Performer Type Date [facility] - 7 7 [facility] OUT[facility]EN [facility] - 5 5 [facility] - 4 4 [facility]PATI[facility] STONE - 4 4 [facility] OUTPATIEN [facility] STONE - 3 3 [facility] OUTPATIEN [facility] STONE - 3 3 [facility] OUTPATIEN [facility] STONE - 2 2 [facility] OUTPATIEN [facility] STONE - 1 1 [facility] OUTPATIEN [facility] STONE - 0 0 [facility] OUTPATIEN [facility] STONE - 0 0 [facility] OUTPATIEN [facility] STONE - 9 9 [facility]PATIEN [facility] ST[facility] - 9 9 [facility] 18396 ANGELICA FERRARI, DEPT 9 9 EMERGENCY [place] VISIT SERVICES HIGH SEVERITY& ASSOCIATE THREAT S FUN EMERGENCY 17645 [facility] 9 9 [facility] VISIT MODERATE SEVERITY [facility]OSP[facility] - 9 9 [facility] OUTPATIEN [facility] STONE - 8 8 [facility]PAT[facility]EN [facility] - 8 8 [facility]
--- OUTSIDE RECORDS SUMMARY | 2017-07-28 19:54 | External Medical Summary Rpt | CCD ---
Author Author , KYAW CRUMPAUGUSTO Address Unknown Phone [email or web address] Immunization Name Date Rout CVX Reac Dose Comm Prov Is Faci e tion ent ider Refu lity Give sed n MMR 10-0 3 999 Hist H149 No H149 2-20 oric 00 al Info rmat ion - Sour ce Unsp ecif ied Rodolfo 10-0 10 999 Hist H149 No [...]
--- OUTSIDE RECORDS SUMMARY | 2017-07-28 19:54 | External Medical Summary Rpt | CCD ---
Author Author , KYAW CRUMPAUGUSTO Address Unknown Phone [email or web address] Immunization Name Date Rout CVX Reac Dose [...]
[2017-07-28 20:16] LABS: URINE BILIRUBIN - DIPSTICK NEGATIVE (NEG)
[2017-07-28 20:17] LABS: URINE BLOOD NEGATIVE (NEG)
[2017-07-28] MEDS ORDERED: PYRIDIUM200 M2 PO (20:41)
--- NOTE | 2017-07-28 20:41 | Urgent Treatment Center Report ---
History of Present Issue Date/Time Seen by Provider 07/28/172014 Visit Reason Pt arrived:Walked Presenting Problem:BURNING WITH URINATION Location if Accident: Onset of symptoms date/time:/ or onset unknown for:MEDICAL HX UNKNOWN Have you (or family members/close friends) recently traveled outside the [place]? N If Yes, where/when: Have you had exposure to infectious disease within the past month? TB? Other? Specify: Here w/ mom c/o dysuria starting last night. Once last night and once this morning. Hasn't taken or tried anything for symptoms. Just wants to r/o UTI. Possible odor to urine. Mom being seen with same symptoms so daughter thought she would too. Source patient Exam Limitations no limitations ALLERGIES Coded Allergies: No Known Drug Allergies (10/18/16) History Medical History General CAD? No Angina: No IN: No Hypertension? No Hyperlipidemia? No CHF? No DVT? No PE? No COPD? No Asthma? No Anemia? No GERD? No Gastric ulcers? No GI Bleed? No Hernia? Yes Thyroid Problems? No Hypothyroidism? No CVA? No Seizures? No Diabetes? No Insulin Dependent: No Insulin Pump: No Home FSBS? No Renal Insuffiency? No UTI? No Stones? No BPH? No GB Disease: No Nephritic Syndrome? No Asplenia? No Hepatitis? No Sickle Cell Disease? No Arthritis? No Migraines? No Cataracts? No Glaucoma? No MRSA? No HIV? No TB? No Anxiety? No Depression? No Cancer? No More? Yes Additional hx: HISTORY OF SPINA BIFIDA Immunization HX Ped.Immunizations UTD Yes DT/Tetanus 1-4 YRS Flu NEVER Pneumonia NEVER Surgical Hx Previous Surgery?Y HERNIA REPAIR BOWEL SURGERY CYST REMOVED FROM LT OVAR Family History Family HX Diabetes No CAD No Hypertension No Hyperlipidemia No Cancer No TB No Social History Smoking Hx Smoker: Never Smoker Tobacco: No Alcohol Alcohol: No Review of Systems All Other Systems Reviewed and Negative Constitutional see HPI, denies chills, denies fever, denies malaise Gastrointestinal denies abdominal pain, denies nausea, denies vomiting Genitourinary see HPI. denies: discharge, frequency, hesitancy, hematuria, pain. Musculoskeletal back pain (chronic, spina bifada) Skin denies lesions, denies rash Psychiatric/Neurological denies headache Physical Exam Vital Signs Vital Signs Date Time Temp Pulse Resp B/P Pulse O2 O2 Flow FiO2 Ox Delivery Rate 07/28 2043 98.1 72 18 120/84 98 07/28 1957 98.1 72 18 120/84 98 General Appearance normal appearance, no apparent distress Respiratory Status No: respiratory distress. Cardiovascular no peripheral edema Gastrointestinal normal bowel sounds, non tender, soft, no organomegaly, no pulsatile mass, no guarding, no rebound, no suprapubic tenderness, no bladder distention Back no CVA tenderness Neurologic alert Skin normal color, warm/dry Medical Decision Making LABS/Meds/Orders Pt receiving controlled substance in ED? No Results/Orders Laboratory Tests 07/28/171958: Urine Color YELLOW, Urine Appearance CLEAR, Urine pH 6.5, Ur Specific [place] 1.025, Urine Protein NEGATIVE, Urine Ketones NEGATIVE, Urine Blood NEGATIVE, Urine Nitrate NEGATIVE, Urine Bilirubin NEGATIVE, Urine Urobilinogen 0.2, Ur Leukocyte Esterase NEGATIVE, Urine Glucose NEGATIVE Orders Procedure Date/time Status CULTURE, URINE 07/28 2042 Active UTC URINE DIPSTICK 07/28 1959 Complete Departure Departure Time of Disposition 2039 Disposition DC Home or Self Care(routine) Clinical Impression Primary Impression: Dysuria Condition STABLE Referrals NO REFERRAL Be SURE to follow up anytime for new or worsening symptoms, AND in 48 hours for urine culture results Patient Instructions DI for Dysuria -- Adult Additional Instructions * increase fluids, Water and NOT soda or tea * pyridium as needed. Remember this will turn your urine ORANGE, this is normal but will stain whatever it gets on. this includes tears and contacts. Try not to wear contacts due to risk of staining orange. * You should not need the pyridium longer than 48 hours. If so, follow up with primary care to review urine culture * Be SURE to follow up anytime for new or worsening symptoms, AND in 48 hours for urine culture results * Be sure to let your PCP (or whoever you follow up with) know we sent urine culture so they can request records Discharge Counseling Counseled pt/family regarding diagnosis, test results, medications/RX, home care, follow up needs Prescriptions Current Visit Scripts Phenazopyridine HCl (Pyridium) 200 MG PO TIDP PRN dysuria #6 TAB at 2047
[2017-07-28 20:43] VITALS: BP 120/84
== END 2017-07-28 20:43 | disposition home or self-care (01) ==
LOC: UTC 19:39
PROVIDERS: Nurse Practitioner Family
DX: R30.0 Dysuria (principal)